=== PATIENT | female | born 1960 | race Caucasian/White ===

== ENCOUNTER 2020-06-26 14:16 | Inpatient (IN) | payer BC ==
[2020-06-26] VITALS (9 sets, daily range): BP systolic 165–205; BP diastolic 68–99
[~2020-06-26] VITALS: Ht 167.6 cm; Wt 115.6 kg
[~2020-06-26 14:16] MED LIST: ASPI325T8 PO; CITA20TA6 PO; CRESTOR10 MG PO; GABA300C18 PO; INSU100I13 SQ; INSU100V13 SQ; LISI1TAB20 PO; LISI20TA18 PO; METF500T16 PO; METO25TA4 PO; MOME17SP NS; MORP10SY2 SQ; NITR1OIN TD; UBID100C40 PO
[2020-06-26] MEDS ORDERED: ELECTROLYTE (ICU) PROTOCOL. MC PRN (14:45)
[2020-06-26] MEDS ORDERED: ONDANSETRON PF 4 MG/2 ML VIAL. IVP PRN (15:00)
[2020-06-26] MEDS: LABETALOL 20 MG/4 ML DISP.SYRIN. IVP PRN ×2 (15:02→22:45)
[2020-06-26 15:08] LABS: BASO # 0.1 x10^3/uL (0.0-0.2); BASO % 1 % (0-3); EOS % 0 % (0-3); HEMATOCRIT 34.2 % (36.0-47.0); HEMOGLOBIN 11.6 g/dL (12.0-15.5); LYMPH # 1.2 x10^3/uL (1.0-4.8); LYMPH % 13 % (24-48); MEAN CORPUSCULAR HEMOGLOBIN 27 pg (25-35); MEAN CORPUSCULAR HGB CONC 34 g/dL (31-37); MEAN CORPUSCULAR VOLUME 81 fL (79-100); MONO # 0.4 x10^3/uL (0.0-1.1); MONO % 4 % (0-9); NEUT # 7.7 x10^3/uL (1.8-7.7); NEUT % 82 % (31-73); PLATELET COUNT 237 x10^3/uL (140-400); RED BLOOD COUNT 4.24 x10^6/uL (3.50-5.40); RED CELL DISTRIBUTION WIDTH 14.7 % (11.5-14.5); WHITE BLOOD COUNT 9.4 x10^3/uL (4.0-11.0)
--- NOTE | 2020-06-26 15:08 | PDOC2 ---
NEUROLOGY CONSULT Date of Service DOS: DATE: 06/26/20 TIME: 15:06 Reason for Consult Reason for Consult: Stroke Referring Physician Referring Physician: Dr. Caballero Source Source: Chart review, Patient History of Present Illness History of Present Illness The patient is a 60-year-old right-handed female who noticed right sided weakness, incoordination, dysarthria, and headache yesterday morning at about 8:30. 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 She came to the emergency department at [facility] last night so was outside the window for alteplase. She was not considered for any intervention regarding possible large vessel occlusion. Her blood pressure has been as high as 250/98. There is no prior history of stroke, seizure, or head injury. She denies headache. She complains of anxiety or irritability related to restless leg syndrome. She has had cardiac work-up in 2014 for chest pain with negative echocardiogram. She did have an elevated troponin in [facility] and cardiology did see her there. Past Medical History Cardiovascular: CAD (Cardiac Cath 02/02/15: Nonobstructive coronary artery disease, normal left ventricle systolic function with ejection fraction estimated at 55%, no significant mitral regurgitation or aortic stenosis. 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, rare alcohol Current Medications Current Medications Current Medications Potassium Chloride/Sodium Chloride 1,000 ml @ 75 mls/hr [id number] IV Last administered on 06/26/20at 15:01; Start 06/26/20 at 15:00 Aspirin (Ecotrin) 81 mg DAILYWBKFT PO ; Start 06/27/20 at 08:00 Atorvastatin Calcium (Lipitor) 40 mg QHS PO ; Start 06/26/20 at 21:00 Citalopram Hydrobromide (CeleXA) 20 mg DAILY PO ; Start 06/27/20 at 09:00 Info (Icu Electrolyte Protocol) 1 ea CONT PRN PRN MC PER PROTOCOL; Start 06/26/20 at 14:45 Gabapentin (Neurontin) 300 mg BID PO ; Start 06/26/20 at 21:00 Labetalol HCl (Normodyne Iv Push) 20 mg PRN Q2HR PRN IVP HYPERTENSION-1ST CHOICE Last administered on 06/26/20at 15:02; Start 06/26/20 at 14:45 Lisinopril (Prinivil) 10 mg DAILY PO ; Start 06/27/20 at 09:00 Metoprolol Tartrate (Lopressor) 50 mg BID PO ; Start 06/26/20 at 21:00 Ondansetron HCl (Zofran) 4 mg PRN Q4HRS PRN IVP NAUSEA/VOMITING; Start 06/26/20 at 15:00 Hydralazine HCl (Apresoline Inj) 10 mg PRN Q4HRS PRN IVP ELEVATED BP, SEE COMMENTS; Start 06/26/20 at 15:00 Active Scripts Active Reported Co Q-10 (Ubidecarenone) 100 Mg Capsule 100 Mg PO DAILY Lantus Solostar (Insulin Glargine,Hum.rec.anlog) 100 Unit/1 Ml Insuln.pen 55 Unit SQ QHS Metformin Hcl 500 Mg Tablet 1 Tab PO BID hold for 48 hours after cardiac catherization Lisinopril-Hctz 20-25 Mg Tab (Lisinopril/Hydrochlorothiazide) 1 Each Tablet 1 Tab PO DAILY Crestor (Rosuvastatin Calcium) 10 Mg Tablet 1 Tab PO HS Nasonex (Mometasone Furoate) 17 Gm Avalon.pump 2 Avalon NS DAILY Metoprolol Tartrate 25 Mg Tablet 1 Tab PO BID Lisinopril 20 Mg Tablet 1 Tab PO DAILY Gabapentin 300 Mg Capsule 1 Cap PO HS PRN diabetic neuropathy Citalopram Hbr (Citalopram Hydrobromide) 20 Mg Tablet 1 Tab PO DAILY Allergies Allergies: Coded Allergies: shellfish derived (Verified Allergy, Intermediate, 04/07/15) ROS Review of System Negative for fever, chills, weight loss, shortness of breath, chest pain, indigestion, hematochezia, melena, and dysuria. Full 14-point review of systems is negative. Physical Exam Physical Examination General: Well-developed, well-nourished white female in no acute distress HEENT: Normocephalic andatraumatic. Temporal arteriespulsatile and nontender. Neck: Supple without bruit, no meningismus Musculoskeletal: Stability:see neurologic. Gait exam:see neurologic. Tone:see neurologic.Strength:see neurologic. Neurological: Mental Status:intact, orientation, memory, attention span/concentration, language, fund of knowledge normal. Cranial Nerves:Pupils equal and reactive to light, extraocular movements areintact, visual naranjo are full to c onfrontation. Facial sensation is normal. There is a right central facial weakness and dysarthric speech. Vestibulo-ocular reflex is intact. Palate elevates and tongue protrudes in midline. All other cranial related problems are negative except as mentioned before.Reflexes:1+ and symmetric with flexor plantar responses. Motor:3/5 right hemiparesis with normal tone and bulk. Coor dination:Finger-nose finger and lpiq-sd-asxp testing are normal, considering for hemiparesis. Rapid alternating movements and fine finger movements are intact. Gait:Not tested. Sensory:Stocking loss. Vitals VITALS Vital Signs Date Time Temp Pulse Resp B/P (MAP) Pulse Ox O2 Delivery O2 Flow Rate FiO2 06/26/20 15:02 92 205/99 06/26/20 14:51 98.6 18 98 Room Air 98.6 Labs Labs [facility] Laboratory Tests 06/26: BUN 34, creatinine 2.2 Test 06/25/20 17:03 06/25/20 17:11 06/25/20 21:13 06/25/20 22:52 White Blood Count 8.6 x10^3/uL (4.0-11.0) Red Blood Count 4.40 x10^6/uL (3.50-5.40) Hemoglobin 11.9 g/dL (12.0-15.5) Hematocrit 35.6 % (36.0-47.0) Mean Corpuscular Volume 81 fL (79-100) Mean Corpuscular Hemoglobin 27 pg (25-35) Mean Corpuscular Hemoglobin Concent 33 g/dL (31-37) Red Cell Distribution Width 14.5 % (11.5-14.5) Platelet Count 233 x10^3/uL (140-400) Neutrophils (%) (Auto) 64 % (31-73) Lymphocytes (%) (Auto) 23 % (24-48) Monocytes (%) (Auto) 7 % (0-9) Eosinophils (%) (Auto) 6 % (0-3) Basophils (%) (Auto) 1 % (0-3) Neutrophils # (Auto) 5.5 x10^3uL (1.8-7.7) Lymphocytes # (Auto) 2.0 x10^3/uL (1.0-4.8) Monocytes # (Auto) 0.6 x10^3/uL (0.0-1.1) Eosinophils # (Auto) 0.5 x10^3/uL (0.0-0.7) Basophils # (Auto) 0.1 x10^3/uL (0.0-0.2) Prothrombin Time 10.0 SEC (9.4-11.4) Prothromb Time International Ratio 1.0 (0.9-1.1) Activated Partial Thromboplast Time 24 SEC (23-33) Sodium Level 141 mmol/L (136-145) Potassium Level 3.9 mmol/L (3.5-5.1) Chloride Level 106 mmol/L (98-107) Carbon Dioxide Level 27 mmol/L (21-32) Anion Gap 8 (6-14) Blood Urea Nitrogen 27 mg/dL (7-20) Creatinine 2.5 mg/dL (0.6-1.0) Estimated GFR (Cockcroft-Gault) 19.8 BUN/Creatinine Ratio 11 (6-20) Glucose Level 194 mg/dL (70-99) Lactic Acid Level 0.8 mmol/L (0.4-2.0) Calcium Level 7.9 mg/dL (8.5-10.1) Total Bilirubin 0.2 mg/dL (0.2-1.0) Aspartate Amino Transf (AST/SGOT) 14 U/L (15-37) Alanine Aminotransferase (ALT/SGPT) 16 U/L (14-59) Alkaline Phosphatase 98 U/L (46-116) Creatine Kinase 76 U/L (26-192) Creatine Kinase MB (Mass) 2.0 ng/mL (0.0-3.6) Creatine Kinase MB Relative Index 2.6 % (0-4) Troponin I Quantitative 0.032 ng/mL (0-0.055) 0.044 ng/mL (0-0.055) Total Protein 5.4 g/dL (6.4-8.2) Albumin 2.3 g/dL (3.4-5.0) Albumin/Globulin Ratio 0.7 (1.0-1.7) Ethyl Alcohol Level < 10 mg/dL (0-10) Glucose (Fingerstick) 224 mg/dL (70-99) 178 mg/dL (70-99) Test 06/26/20 00:35 06/26/20 01:34 06/26/20 05:35 Troponin I Quantitative 0.089 ng/mL (0-0.055) Urine Collection Type Unknown Urine Color Yellow Urine Clarity Clear Urine pH 7.0 Urine Specific Downey 1.020 Urine Protein >100 mg/dl (NEG-TRACE) Urine Glucose (UA) 250 mg/dL (NEG) Urine Ketones (Stick) Neg mg/dL (NEG) Urine Blood Small (NEG) Urine Nitrite Neg (NEG) Urine Bilirubin Neg (NEG) Urine Urobilinogen Dipstick 0.2 mg/dL (0.2 mg/dL) Urine Leukocyte Esterase Neg (NEG) Urine RBC Occ /HPF (0-2) Urine WBC 5-10 /HPF (0-4) Urine Squamous Epithelial Cells Few /LPF Urine Bacteria Few /HPF (0-FEW) Urine Opiates Screen Neg (NEG) Urine Methadone Screen Neg (NEG) Urine Barbiturates Neg (NEG) Urine Phencyclidine Screen Neg (NEG) Urine Amphetamine/Methamphetamine Neg (NEG) Urine Benzodiazepines Screen Neg (NEG) Urine Cocaine Screen Neg (NEG) Urine Cannabinoids Screen Neg (NEG) Urine Ethyl Alcohol Neg (NEG) White Blood Count 11.1 x10^3/uL (4.0-11.0) Red Blood Count 4.25 x10^6/uL (3.50-5.40) Hemoglobin 11.4 g/dL (12.0-15.5) Hematocrit 34.8 % (36.0-47.0) Mean Corpuscular Volume 82 fL (79-100) Mean Corpuscular Hemoglobin 27 pg (25-35) Mean Corpuscular Hemoglobin Concent 33 g/dL (31-37) Red Cell Distribution Width 14.1 % (11.5-14.5) Platelet Count 230 x10^3/uL (140-400) Neutrophils (%) (Auto) 82 % (31-73) Lymphocytes (%) (Auto) 11 % (24-48) Monocytes (%) (Auto) 4 % (0-9) Eosinophils (%) (Auto) 2 % (0-3) Basophils (%) (Auto) 1 % (0-3) Neutrophils # (Auto) 9.0 x10^3uL (1.8-7.7) Lymphocytes # (Auto) 1.2 x10^3/uL (1.0-4.8) Monocytes # (Auto) 0.5 x10^3/uL (0.0-1.1) Eosinophils # (Auto) 0.3 x10^3/uL (0.0-0.7) Basophils # (Auto) 0.1 x10^3/uL (0.0-0.2) Sodium Level 142 mmol/L (136-145) Potassium Level 3.4 mmol/L (3.5-5.1) Chloride Level 106 mmol/L (98-107) Carbon Dioxide Level 23 mmol/L (21-32) Anion Gap 13 (6-14) Blood Urea Nitrogen 24 mg/dL (7-20) Creatinine 2.4 mg/dL (0.6-1.0) Estimated GFR (Cockcroft-Gault) 20.7 BUN/Creatinine Ratio 10 (6-20) Glucose Level 229 mg/dL (70-99) Calcium Level 8.0 mg/dL (8.5-10.1) Total Bilirubin 0.4 mg/dL (0.2-1.0) Aspartate Amino Transf (AST/SGOT) 14 U/L (15-37) Alanine Aminotransferase (ALT/SGPT) 16 U/L (14-59) Alkaline Phosphatase 90 U/L (46-116) Total Protein 5.9 g/dL (6.4-8.2) Albumin 2.2 g/dL (3.4-5.0) Albumin/Globulin Ratio 0.6 (1.0-1.7) Images Images CT head without contrast 06/26/2020 10:27 AM INDICATION: Facial droop yesterday COMPARISON: CT head 06/25/2020 TECHNIQUE: Multiple axial CT images of the head were obtained from skull base through the vertex without intravenous contrast. FINDINGS: Head: Ventricles, sulci and basal cisterns are within normal limits. There is no hydrocephalus. Mars-white matter differentiation is normal. There is no acute intracranial hemorrhage. There is no mass, mass effect or midline shift. Posterior fossa is normal in appearance. Stable calcified extra-axial lesion along the right frontal calvaria measuring 8.5 mm (series 2, image 19). Low- attenuation in the periventricular white matter is suggestive of chronic small vessel ischemic changes. Visualized portions of the orbits are normal. Paranasal sinuses are well aerated. Mastoid air cells are well aerated. There is a stable calcified scalp lesion along the left frontal parietal scalp measuring 1.2 cm. Calvaria is intact. IMPRESSION: No acute intracranial hemorrhage. Low-attenuation in the periventricular white matter is suggestive of chronic small vessel ischemic changes. No new areas of cerebral edema are suspected as compared to prior examination. CT Head without IV contrast, [facility], 06/25 INDICATION: Reason: slurred speech, right facial droop, right weakness / Spl. Instructions: / History: TECHNIQUE: Multi-detector row CT images were obtained of the head without the use of IV contrast. All CT scans performed at this facility utilize dose optimization techniques as appropriate to the exam, including the following: Automated exposure control and adjustment of the mA and/or KV according to patient size (this includes techniques or standardized protocols for targeted exams where dose is indication/reason for exam). COMPARISON: None FINDINGS: BRAIN PARENCHYMA: No evidence of acute intraparenchymal hemorrhage or infarct. Generalized parenchymal volume loss and white matter low density compatible chronic ischemic microvascular changes present VENTRICLES & EXTRA-AXIAL SPACES: Ventricles are within normal limits. Basilar cisterns are patent. No pathologic extra-axial fluid collection or mass. ORBITS: Orbital contents are unremarkable. SINUSES: Visualized paranasal sinuses and mastoid air cells are clear. OSSEOUS & SOFT TISSUES: Calvarium and skull base are intact. IMPRESSION: No acute intracranial pathology. Assessment/Plan Assessment/Plan Impression: Left hemispheric stroke, most likely lacunar given the lack of aphasia or field cut. We need to rule out large vessel disease, though, which was not addressed at [facility]. Diabetic peripheral neuropathy Restless leg syndrome Hypertension, diabetes, hyperlipidemia, acute on chronic renal insufficiency, elevated troponin. She had hypokalemia at [facility] Recommendations: She presented beyond the window for alteplase last night, she is also now beyond any window for clot retrieval from large vessel disease. CT angiogram contraindicated by her renal insufficiency, I will order MRI of the brain with MR angiogram of the head and neck as a substitute, without contrast. As she is far outside any window for intervention, the study can be done tomorrow Echocardiogram and cardiology has been consulted Aspirin when able to take orally Statin Somewhat tighter blood pressure parameters as she is coming up on 2 days post stroke, using 190/110. Rehabilitation modalities Ativan as needed for restlessness and restless legs until able to take orally Also see stroke orders. Thank you for letting me help with the patient's care. KARINA JAUREGUI MD Jun 26, 2020 15:08
[2020-06-26 15:32] LABS: ALBUMIN 2.1 g/dL (3.4-5.0); ALBUMIN/GLOBULIN RATIO 0.6 (1.0-1.7); CALCIUM 8.8 mg/dL (8.5-10.1); CREATININE 2.6 mg/dL (0.6-1.0); GFR 18.9; POTASSIUM 3.9 mmol/L (3.5-5.1); TOTAL BILIRUBIN 0.5 mg/dL (0.2-1.0); TOTAL PROTEIN 5.8 g/dL (6.4-8.2)
[2020-06-26] MEDS ORDERED: DEXTROSE 50% 25 GM / 50ML DISP.SYRIN. IV PRN (15:45)
[2020-06-26] MEDS ORDERED: LISI1TAB23 PO (15:48)
[2020-06-26] MEDS ORDERED: ATOR40TA59 PO (15:48)
--- NOTE | 2020-06-26 15:57 | NUR ---
The patient, SELENA CALABRESE, 60 y/o, F admitted by MARIO PEREIRA MD, was given written information regarding hospital policies, unit procedures and contact persons. Valuables were checked and admission assessment completed. NIH performed per protocol patient received a [address] Dr[address] Calhoun notified and orders entered. Consult placed see database. Patient in bed call light within reach will continue to monitor
[2020-06-26] MEDS ORDERED: ASPIRIN RECTAL 300 MG SUPP. PR PRN (16:15)
--- NOTE | 2020-06-26 16:24 | NUR ---
RN KIM CLARKE completed see database patient to continue NPO per protocol.
[2020-06-26] MEDS: INSULIN LISPRO 300 UNITS/3 ML VIAL. SQ SCH (17:35)
[2020-06-26] MEDS: MAGNESIUM SULFATE 4GM 100 ML IV SCH (17:35)
[2020-06-26] MEDS: GABAPENTIN 300 MG CAPSULE. PO SCH (21:00)
[2020-06-26] MEDS: ATORVASTATIN CALCIUM 40 MG TABLET. PO SCH (21:00)
[2020-06-26] MEDS: METOPROLOL TART IMMED RELEASE 50 MG TABLET. PO SCH (21:00)
[2020-06-27] VITALS (17 sets, daily range): BP systolic 153–226; BP diastolic 66–108
[2020-06-27] MEDS: hydrALAZINE 20 MG/ML VIAL. IVP PRN ×3 (00:02→10:02)
[2020-06-27] MEDS: LABETALOL 20 MG/4 ML DISP.SYRIN. IVP PRN ×2 (02:05→09:24)
--- NOTE | 2020-06-27 05:38 | NUR ---
Pt given Ativan 2mg IVP per orders at 0045 for restlessness and anxiety. Also, in attempt to help manage BP. Attempted NIH scale X2 at 0400 and 0515. Pt drowsy at 0400 and difficult to stay awake to complete NIH. At 0515, pt continued to be drowsy and only able to perform part of NIH scale. Speech is somewhat more slurred but still able to understand patient. Hydralazine and Labetalol given X2 this shift in attempts to manage BP at goal of 190/110. Remains NPO until ST is able to see pt. PO meds were held due to NPO status.
[2020-06-27] MEDS: INSULIN LISPRO 300 UNITS/3 ML VIAL. SQ SCH ×4 (06:00→17:28)
--- NOTE | 2020-06-27 08:48 | PDOC ---
MACIE SIMMONS PROCESS SAFETY MANAGEMENT ENGINEER 06/27/20 0848: CARDIO Progress Notes Date and Time Date of Service 06/27/20 Time of Evaluation 0848 Subjective Subjective: No Chest Pain, No shortness of breath, No Palpitations, No Dizziness Vitals Vitals Vital Signs Date Time Temp Pulse Resp B/P (MAP) Pulse Ox O2 Delivery O2 Flow Rate FiO2 06/27/20 07:00 90 20 202/85 (124) 100 Nasal Cannula 2.0 06/27/20 04:30 98.5 98.5 Weight Weight [ ] Input and Output Intake and Output Intake and Output 06/27/20 07:00 Intake Total 1018 ml Output Total 500 ml Balance 518 ml Intake Oral 0 ml IV Total 1018 ml Output Urine Total 500 ml # Voids 1 Laboratory Labs Laboratory Tests Test 06/26/20 14:50 06/26/20 17:28 06/26/20 22:25 06/27/20 00:04 White Blood Count 9.4 x10^3/uL (4.0-11.0) Red Blood Count 4.24 x10^6/uL (3.50-5.40) Hemoglobin 11.6 g/dL (12.0-15.5) Hematocrit 34.2 % (36.0-47.0) Mean Corpuscular Volume 81 fL (79-100) Mean Corpuscular Hemoglobin 27 pg (25-35) Mean Corpuscular Hemoglobin Concent 34 g/dL (31-37) Red Cell Distribution Width 14.7 % (11.5-14.5) Platelet Count 237 x10^3/uL (140-400) Neutrophils (%) (Auto) 82 % (31-73) Lymphocytes (%) (Auto) 13 % (24-48) Monocytes (%) (Auto) 4 % (0-9) Eosinophils (%) (Auto) 0 % (0-3) Basophils (%) (Auto) 1 % (0-3) Neutrophils # (Auto) 7.7 x10^3/uL (1.8-7.7) Lymphocytes # (Auto) 1.2 x10^3/uL (1.0-4.8) Monocytes # (Auto) 0.4 x10^3/uL (0.0-1.1) Eosinophils # (Auto) 0.0 x10^3/uL (0.0-0.7) Basophils # (Auto) 0.1 x10^3/uL (0.0-0.2) Sodium Level 143 mmol/L (136-145) Potassium Level 3.9 mmol/L (3.5-5.1) Chloride Level 107 mmol/L (98-107) Carbon Dioxide Level 25 mmol/L (21-32) Anion Gap 11 (6-14) Blood Urea Nitrogen 27 mg/dL (7-20) Creatinine 2.6 mg/dL (0.6-1.0) Estimated GFR (Cockcroft-Gault) 18.9 BUN/Creatinine Ratio 10 (6-20) Glucose Level 253 mg/dL (70-99) Calcium Level 8.8 mg/dL (8.5-10.1) Magnesium Level 1.3 mg/dL (1.8-2.4) 2.5 mg/dL (1.8-2.4) Total Bilirubin 0.5 mg/dL (0.2-1.0) Aspartate Amino Transf (AST/SGOT) 16 U/L (15-37) Alanine Aminotransferase (ALT/SGPT) 17 U/L (14-59) Alkaline Phosphatase 89 U/L (46-116) Total Protein 5.8 g/dL (6.4-8.2) Albumin 2.1 g/dL (3.4-5.0) Albumin/Globulin Ratio 0.6 (1.0-1.7) Triglycerides Level 110 mg/dL (0-150) Cholesterol Level 198 mg/dL (0-200) LDL Cholesterol, Calculated 126 mg/dL (0-100) VLDL Cholesterol, Calculated 22 mg/dL (0-40) Non-HDL Cholesterol Calculated 148 mg/dL (0-129) HDL Cholesterol 50 mg/dL (40-60) Cholesterol/HDL Ratio 4.0 Glucose (Fingerstick) 199 mg/dL (70-99) 187 mg/dL (70-99) Test 06/27/20 06:34 06/27/20 08:00 Glucose (Fingerstick) 226 mg/dL (70-99) Magnesium Level 2.4 mg/dL (1.8-2.4) Physical Exam HEENT: Neck Supple W Full Motion, Other (right facial droop) Chest: Symmetric LUNGS: Clear to Auscultation Heart: RRR Abdomen: Soft N/T Extremities: No Edema, Other (right sided weakness) Neurology: alert, oriented, follow commands Assessment Assessment This is a 60 yo female who presented to [facility] secondary to right sided weakness and facial drop. Patient reports this began upon awakening 06/25/20. Denied any associated dizziness, diaphoresis, chest pain, or nausea/vomiting. No recent fevers or illness. Blood pressure significantly elevated upon arrival. Reports complains with meds at home. Please see consult at [facility] for further details. Assessment 1. Acute onset right sided weakness, acute CVA 2. FORREST on CKD 3. Hypertensive urgency; labile 4. Elevated troponin; highest 0.16. Most probable type II, demand ischemia in setting of above 5. Hyperlipidemia; statin 6. Diabetes, II 7. Hypokalemia, hypomagnesemia; replaced Recommendations MRI today Secondary prevention ST eval. Echo to assess LV systolic function, r/o cardiac anomalies Hydralazine, Labetalol IV PRN while NPO Can use Cardene if BP goal not achieved with above Allow for higher baseline blood pressure given acute stroke Rehab modalities Follow neuro recs Consider outpatient ischemic evaluation Supportive care Justicifation of Admission Dx: Justifications for Admission: Justification of Admission Dx: Yes Comments: Acute CVA Accelerated HTN Elevated troponin RONALDO JESUS MD 06/27/20 2213: CARDIO Progress Notes Plan Plan Pt. seen and examined. Agree with above AIRCRAFT [employer] SYSTEM[employer] MECHANIC note. Supportive care. MACIE SIMMONS APRN Jun 27, 2020 08:48 RONALDO JESUS MD Jun 27, 2020 22:13
[2020-06-27] MEDS: METOPROLOL TART IMMED RELEASE 50 MG TABLET. PO SCH ×2 (09:00→21:18)
[2020-06-27] MEDS ORDERED: LISINOPRIL 10 MG TABLET PO SCH (09:00)
[2020-06-27] MEDS: MAGNESIUM SULFATE 4GM 100 ML IV SCH (09:00)
--- NOTE | 2020-06-27 09:30 | EKG ---
[facility] [address] [place] [address] Test Date: 2020-06-27 Test Time: 09:26:57 Pat Name: SELENA CALABRESE Department: Room: [facility] 1 Gender: F Interactive Web Developer: JAMAL : 1960 Requested By: MACIE SIMMONS Order Number: [id number] Reading MD: Cameron De La Paz Measurements Intervals [place] Rate: 90 P: 54 CA: 168 QRS: 51 QRSD: 78 T: 114 QT: 386 QTc: 477 Interpretive Statements SINUS RHYTHM PROLONGED QT Electronically Signed On 07-03-2020 10:04:28 NEON SIGN MECHANIC by Cameron De La Paz
--- NOTE | 2020-06-27 09:44 | HP ---
ADMIT DATE: 06/27/2020 HISTORY OF PRESENT ILLNESS: The patient is a 60-year-old female patient who presented to the Emergency Room of [facility] with a complaint of slurring of speech and unsteady on her feet, she noted that yesterday morning when she woke up and on the day for admission to [facility]. However, she managed to go to school, work and come back home. According to her, nobody has noticed any right-sided facial droop or slurring of her speech and as her symptoms continued, she decided to come to the Emergency Room, where her blood pressure was noted to be extremely high at 206/87. She also complained of numbness and paresthesia of her hands. Initial noncontrasted CT scan revealed no acute intracranial process. According to the Emergency Room physician, she was outside the window for TPA and according to document of the Emergency Room physician, her symptoms have completely resolved by the time she was admitted to [facility]. However, when I saw her yesterday, she was extremely hypertensive with a high blood pressure of 250/98. She continued to have slurring of speech and right-sided weakness and right-sided facial droop. I did repeat her CT scan and again the second CT scan showed no acute intracranial hemorrhage, low attenuation in the periventricular white matter, suggestive of chronic small vessel ischemic changes. No new areas of cerebral edema are suspected as compared to prior examination. I did start her on IV labetalol and hydralazine and was transferred to [facility] for her to consult the neurologist and also to arrange for an MRI and MRA. When I saw her this morning, she was awake, alert, continued to have slurring of speech and right-sided weakness. Apparently, she was seen yesterday by Dr. Calhoun, who recommended an MRI and MRA as well as Cardiology consult and echocardiogram. PAST MEDICAL HISTORY: Significant for type 2 diabetes mellitus since 2002, hypertension, hyperlipidemia, chronic kidney disease, generalized osteoarthritis, and peripheral neuropathy. PAST SURGICAL HISTORY: Significant for cholecystectomy, 4 and tubal ligation. ALLERGIES: She has no known drug allergy EXCEPT TO SHELLF[employer] D[employer]IVATIVES. HOME MEDICATIONS: Consist of atorvastatin, calcium 40 mg at bedtime, metoprolol tartrate 50 mg twice a day. She was on lisinopril/hydrochlorothiazide 10/12.5 mg once a day, gabapentin 300 mg 3 times a day, citalopram hydrobromide 20 mg daily, metformin 500 mg daily and glipizide 5 mg extended release 1 tablet once a day. FAMILY HISTORY: She has 1 half-sister and older brother. Her father at the age of 72, the cause of which is not clear. Mother at age of 47 because of breast cancer. SOCIAL HISTORY: She is , has 2 sons. They continue to live with her and her . She has another daughter and a son. She quit smoking in 1984. She does not drink alcohol nor does she smoke marijuana, but used CBD. She is an cashier assistant, working at [employer]. REVIEW OF SYSTEMS: As per history of present illness. PHYSICAL EXAMINATION GENERAL: When I saw her this morning, she looked well and was clearly in no apparent respiratory distress. No pallor, jaundice, cyanosis or thyromegaly. No jugular venous distention. No lower limb edema. VITAL SIGNS: Her heart rate was 90, blood pressure was 202/85, temperature was 98.5, respiratory rate 20, and oxygen saturation was 100% on 2 liters of oxygen. HEAD, EYES, EARS, NOSE AND THROAT: Normocephalic, atraumatic. NECK: Supple. HEART: Showed normal first and second heart sounds. No gallop or murmur. CHEST: Clear to auscultation. No crepitation or rhonchi. ABDOMEN: Distended, soft, nontender. NEUROLOGIC: She is awake, alert, responding appropriately. She continued to have slurring of speech and right-sided facial droop. She also has right-sided hemiplegia. Her intake and output were incompletely recorded. LABORATORY WORK: Her lab work showed a white cell count of 9400, hemoglobin 11.6, hematocrit 34, MCV 81 and platelet count of 237,000. Her serum sodium was 143, potassium 3.9, chloride 107, bicarbonate 25, anion gap of 11, BUN 27, creatinine 2.6 cm. Her blood sugar was 253, calcium was 8.8. Total bilirubin, AST, ALT, alkaline phosphatase are normal. Total protein 5.8, albumin 2.1. Serum triglycerides 110, total cholesterol 198, LDL was 126, VLDL was 22, HDL was 50 and the ratio was 4. IMPRESSION: In summary, this is a 60-year-old female patient with left hemispheric stroke, with right-sided facial droop and right-sided hemiplegia. Other medical problems include diabetic peripheral neuropathy, restless leg syndrome, hypertension, type 2 diabetes, hyperlipidemia and acute on chronic renal insufficiency, elevated troponin and hypokalemia that has resolved. The patient is scheduled for MRI and MRA of the head and neck as substitute without contrast. Meanwhile, we will consult Physical and Occupational Therapy, Speech Therapy and continue with Ativan as needed for restlessness and anxiety. MARIO PEREIRA MD DR: RG/malvin JOB#: [id number] / [id number]
--- NOTE | 2020-06-27 10:19 | PDOC ---
PROGRESS NOTES Date of Service DATE: 06/27/20 TIME: 10:15 Assessment Left hemispheric stroke, most likely lacunar given the lack of aphasia or field cut. We need to rule out large vessel disease, though, which was not addressed at [facility]. Diabetic peripheral neuropathy Restless leg syndrome Hypertension, diabetes, hyperlipidemia, acute on chronic renal insufficiency, elevated troponin. She had hypokalemia at [facility] Plan Await MRI of the brain with MR angiogram of the head and neck Echocardiogram and cardiology consult Aspirin when able to take orally Statin Blood pressure parameters less than 190/110. [facility] for [facility]lessness and restless legs until able to take orally Also see stroke orders. Subjective Feels better Objective Vital Signs Date Time Temp Pulse Resp B/P (MAP) Pulse Ox O2 Delivery O2 Flow Rate FiO2 06/27/20 10:02 87 175/84 06/27/20 09:00 18 98 Nasal Cannula 2.0 06/27/20 08:00 98.9 98.9 Intake and Output 06/27/20 07:00 Intake Total 1018 ml Output Total 500 ml Balance 518 ml Intake Oral 0 ml IV Total 1018 ml Output Urine Total 500 ml # Voids 1 PHYSICAL EXAM Alert. Oriented to time, place and person. PERRL. EOMI. CN: right central facial weakness, dysarthria, both better Muscle tone: normal. Muscle strength: 4/5 right hemiparesis DTR: 1+ Plantar reflex: Flexor Gait: not examined in bed. Sensory exam: Stocking loss. No cerebellar signs elicited. Review of Relevant I have reviewed the following items eldon (where applicable) has been applied. Labs Laboratory Tests Test 06/26/20 14:50 06/26/20 17:28 06/26/20 22:25 06/27/20 00:04 White Blood Count 9.4 x10^3/uL (4.0-11.0) Red Blood Count 4.24 x10^6/uL (3.50-5.40) Hemoglobin 11.6 g/dL (12.0-15.5) Hematocrit 34.2 % (36.0-47.0) Mean Corpuscular Volume 81 fL (79-100) Mean Corpuscular Hemoglobin 27 pg (25-35) Mean Corpuscular Hemoglobin Concent 34 g/dL (31-37) Red Cell Distribution Width 14.7 % (11.5-14.5) Platelet Count 237 x10^3/uL (140-400) Neutrophils (%) (Auto) 82 % (31-73) Lymphocytes (%) (Auto) 13 % (24-48) Monocytes (%) (Auto) 4 % (0-9) Eosinophils (%) (Auto) 0 % (0-3) Basophils (%) (Auto) 1 % (0-3) Neutrophils # (Auto) 7.7 x10^3/uL (1.8-7.7) Lymphocytes # (Auto) 1.2 x10^3/uL (1.0-4.8) Monocytes # (Auto) 0.4 x10^3/uL (0.0-1.1) Eosinophils # (Auto) 0.0 x10^3/uL (0.0-0.7) Basophils # (Auto) 0.1 x10^3/uL (0.0-0.2) Sodium Level 143 mmol/L (136-145) Potassium Level 3.9 mmol/L (3.5-5.1) Chloride Level 107 mmol/L (98-107) Carbon Dioxide Level 25 mmol/L (21-32) Anion Gap 11 (6-14) Blood Urea Nitrogen 27 mg/dL (7-20) Creatinine 2.6 mg/dL (0.6-1.0) Estimated GFR (Cockcroft-Gault) 18.9 BUN/Creatinine Ratio 10 (6-20) Glucose Level 253 mg/dL (70-99) Calcium Level 8.8 mg/dL (8.5-10.1) Magnesium Level 1.3 mg/dL (1.8-2.4) 2.5 mg/dL (1.8-2.4) Total Bilirubin 0.5 mg/dL (0.2-1.0) Aspartate Amino Transf (AST/SGOT) 16 U/L (15-37) Alanine Aminotransferase (ALT/SGPT) 17 U/L (14-59) Alkaline Phosphatase 89 U/L (46-116) Total Protein 5.8 g/dL (6.4-8.2) Albumin 2.1 g/dL (3.4-5.0) Albumin/Globulin Ratio 0.6 (1.0-1.7) Triglycerides Level 110 mg/dL (0-150) Cholesterol Level 198 mg/dL (0-200) LDL Cholesterol, Calculated 126 mg/dL (0-100) VLDL Cholesterol, Calculated 22 mg/dL (0-40) Non-HDL Cholesterol Calculated 148 mg/dL (0-129) HDL Cholesterol 50 mg/dL (40-60) Cholesterol/HDL Ratio 4.0 Glucose (Fingerstick) 199 mg/dL (70-99) 187 mg/dL (70-99) Test 06/27/20 06:34 06/27/20 08:00 Glucose (Fingerstick) 226 mg/dL (70-99) Magnesium Level 2.4 mg/dL (1.8-2.4) Troponin I Quantitative 0.315 ng/mL (0.000-0.055) Laboratory Tests Test 06/26/20 14:50 06/26/20 17:28 06/26/20 22:25 06/27/20 00:04 White Blood Count 9.4 x10^3/uL (4.0-11.0) Red Blood Count 4.24 x10^6/uL (3.50-5.40) Hemoglobin 11.6 g/dL (12.0-15.5) Hematocrit 34.2 % (36.0-47.0) Mean Corpuscular Volume 81 fL (79-100) Mean Corpuscular Hemoglobin 27 pg (25-35) Mean Corpuscular Hemoglobin Concent 34 g/dL (31-37) Red Cell Distribution Width 14.7 % (11.5-14.5) Platelet Count 237 x10^3/uL (140-400) Neutrophils (%) (Auto) 82 % (31-73) Lymphocytes (%) (Auto) 13 % (24-48) Monocytes (%) (Auto) 4 % (0-9) Eosinophils (%) (Auto) 0 % (0-3) Basophils (%) (Auto) 1 % (0-3) Neutrophils # (Auto) 7.7 x10^3/uL (1.8-7.7) Lymphocytes # (Auto) 1.2 x10^3/uL (1.0-4.8) Monocytes # (Auto) 0.4 x10^3/uL (0.0-1.1) Eosinophils # (Auto) 0.0 x10^3/uL (0.0-0.7) Basophils # (Auto) 0.1 x10^3/uL (0.0-0.2) Sodium Level 143 mmol/L (136-145) Potassium Level 3.9 mmol/L (3.5-5.1) Chloride Level 107 mmol/L (98-107) Carbon Dioxide Level 25 mmol/L (21-32) Anion Gap 11 (6-14) Blood Urea Nitrogen 27 mg/dL (7-20) Creatinine 2.6 mg/dL (0.6-1.0) Estimated GFR (Cockcroft-Gault) 18.9 BUN/Creatinine Ratio 10 (6-20) Glucose Level 253 mg/dL (70-99) Calcium Level 8.8 mg/dL (8.5-10.1) Magnesium Level 1.3 mg/dL (1.8-2.4) 2.5 mg/dL (1.8-2.4) Total Bilirubin 0.5 mg/dL (0.2-1.0) Aspartate Amino Transf (AST/SGOT) 16 U/L (15-37) Alanine Aminotransferase (ALT/SGPT) 17 U/L (14-59) Alkaline Phosphatase 89 U/L (46-116) Total Protein 5.8 g/dL (6.4-8.2) Albumin 2.1 g/dL (3.4-5.0) Albumin/Globulin Ratio 0.6 (1.0-1.7) Triglycerides Level 110 mg/dL (0-150) Cholesterol Level 198 mg/dL (0-200) LDL Cholesterol, Calculated 126 mg/dL (0-100) VLDL Cholesterol, Calculated 22 mg/dL (0-40) Non-HDL Cholesterol Calculated 148 mg/dL (0-129) HDL Cholesterol 50 mg/dL (40-60) Cholesterol/HDL Ratio 4.0 Glucose (Fingerstick) 199 mg/dL (70-99) 187 mg/dL (70-99) Test 06/27/20 06:34 06/27/20 08:00 Glucose (Fingerstick) 226 mg/dL (70-99) Magnesium Level 2.4 mg/dL (1.8-2.4) Troponin I Quantitative 0.315 ng/mL (0.000-0.055) Medications Current Medications Potassium Chloride/Sodium Chloride 1,000 ml @ 75 mls/hr [id number] IV Last administered on 06/27/20at 06:37; Start 06/26/20 at 15:00 Aspirin (Ecotrin) 81 mg DAILYWBKFT PO ; Start 06/27/20 at 08:00 Atorvastatin Calcium (Lipitor) 40 mg QHS PO ; Start 06/26/20 at 21:00 Citalopram Hydrobromide (CeleXA) 20 mg DAILY PO ; Start 06/27/20 at 09:00 Info (Icu Electrolyte Protocol) 1 ea CONT PRN PRN MC PER PROTOCOL; Start 06/26/20 at 14:45 Gabapentin (Neurontin) 300 mg BID PO ; Start 06/26/20 at 21:00 Labetalol HCl (Normodyne Iv Push) 20 mg PRN Q2HR PRN IVP HYPERTENSION-1ST LUNA CE Last administered on 06/27/20at 09:24; Start 06/26/20 at 14:45 Lisinopril (Prinivil) 10 mg DAILY PO ; Start 06/27/20 at 09:00 Metoprolol Tartrate (Lopressor) 50 mg BID PO ; Start 06/26/20 at 21:00 Ondansetron HCl (Zofran) 4 mg PRN Q4HRS PRN IVP NAUSEA/VOMITING Last administered on 06/27/20at 00:45; Start 06/26/20 at 15:00 Hydralazine HCl (Apresoline Inj) 10 mg PRN Q4HRS PRN IVP ELEVATED BP, SEE COMMENTS Last administered on 06/27/20at 10:02; Start 06/26/20 at 15:00 Nicardipine HCl 50 mg/Sodium Chloride 250 ml @ 0 mls/hr CONT PRN PRN IV PER PROTOCOL; Start 06/26/20 at 15:45 Lorazepam (Ativan Inj) 2 mg PRN Q4HRS PRN IVP ANXIETY / AGITATION Last administered on 06/27/20at 00:45; Start 06/26/20 at 15:45 Insulin Human Lispro (HumaLOG) 0-5 UNITS Q6HRS SQ ; Start 06/26/20 at 18:00 Dextrose (Dextrose 50%-Water Syringe) 12.5 gm PRN Q15MIN PRN IV SEE COMMENTS; Start 06/26/20 at 15:45 Aspirin (Aspirin Rectal Supp) 300 mg PRN DAILY PRN AZ IF UNABLE TO TAKE PO Last administered on 06/26/20at 17:39; Start 06/26/20 at 16:15 Magnesium Sulfate 100 ml @ 50 mls/hr DAILY IV Last administered on 06/26/20at 17:35; Start 06/26/20 at 17:00; Stop 06/30/20 at 16:59 Active Scripts Active Reported Atorvastatin Calcium 40 Mg Tablet 1 Tab PO DAILY Lisinopril-Hctz 10-12.5 Mg Tab (Lisinopril/Hydrochlorothiazide) 1 Each Tablet 1 Tab PO DAILY Metformin Hcl 500 Mg Tablet 1 Tab PO DAILYWBKFT hold for 48 hours after cardiac catherization Metoprolol Tartrate 25 Mg Tablet 2 Tab PO BID Gabapentin (Gabapentin) 300 Mg Capsule 1 Cap PO TID PRN diabetic neuropathy Citalopram Hbr (Citalopram Hydrobromide) 20 Mg Tablet 1 Tab PO DAILY Vitals/I & O Vital Sign - Last 24 Hours 06/26/20 06/26/20 06/26/20 06/26/20 14:51 15:02 15:15 16:05 Temp 98.6 98.6 Pulse 91 92 85 Resp 18 B/P (MAP) 205/99 (134) 205/99 193/89 (123) Pulse Ox 98 92 O2 Delivery Room Air Room Air Room Air 06/26/20 06/26/20 06/26/20 06/26/20 16:39 18:17 19:00 20:00 Pulse 81 85 96 Resp 26 B/P (MAP) 176/75 (108) 178/81 (113) 165/77 (106) Pulse Ox 96 91 92 O2 Delivery Room Air Room Air Room Air Room Air 06/26/20 06/26/20 06/26/20 06/26/20 20:00 21:00 22:00 22:45 Temp 98.8 98.8 Pulse 90 84 90 92 Resp 19 26 B/P (MAP) 194/95 (128) 174/68 (103) 202/89 (126) 220/99 Pulse Ox 93 92 92 O2 Delivery Room Air Room Air Room Air 06/26/20 06/27/20 06/27/20 06/27/20 23:00 00:00 00:00 00:02 Temp 98.7 98.7 Pulse 84 90 77 Resp 20 33 B/P (MAP) 191/84 (119) 217/100 (139) Pulse Ox 92 88 O2 Delivery Room Air Room Air Room Air 06/27/20 06/27/20 06/27/20 06/27/20 00:05 01:00 02:00 02:05 Pulse 87 90 93 Resp 19 18 B/P (MAP) 212/104 (140) 199/91 (127) 220/102 Pulse Ox 91 91 95 O2 Delivery Nasal Cannula Nasal Cannula Nasal Cannula O2 Flow Rate 2.0 2.0 2.0 06/27/20 06/27/20 06/27/20 06/27/20 03:00 04:00 04:00 04:30 Temp 98.5 98.5 Pulse 94 82 Resp 22 16 B/P (MAP) 194/93 (126) 200/108 (138) Pulse Ox 95 94 O2 Delivery Nasal Cannula Room Air Nasal Cannula O2 Flow Rate 2.0 2.0 06/27/20 06/27/20 06/27/20 06/27/20 05:00 05:10 06:00 07:00 Pulse 87 88 88 90 Resp 18 26 20 B/P (MAP) 226/104 (144) 226/104 175/84 (114) 202/85 (124) Pulse Ox 94 97 100 O2 Delivery Nasal Cannula Nasal Cannula Nasal Cannula O2 Flow Rate 2.0 2.0 2.0 06/27/20 06/27/20 06/27/20 06/27/20 08:00 08:00 09:00 09:24 Temp 98.9 98.9 Pulse 94 86 99 Resp 22 18 B/P (MAP) 206/92 (130) 170/79 (109) 210/100 Pulse Ox 98 98 O2 Delivery Nasal Cannula Nasal Cannula Nasal Cannula O2 Flow Rate 2.0 2.0 2.0 06/27/20 10:02 Pulse 87 B/P (MAP) 175/84 Intake and Output 06/26/20 06/26/20 06/27/20 15:00 23:00 07:00 Intake Total 100 ml 918 ml Output Total 150 ml 350 ml Balance -150 ml -250 ml 918 ml Justicifation of Admission Dx: Justifications for Admission: Justification of Admission Dx: Yes Stroke - Ischemic: Stroke-Ischemic KARINA JAUREGUI MD Jun 27, 2020 10:19
[2020-06-27 10:34] LABS: CALCIUM 8.7 mg/dL (8.5-10.1); CREATININE 2.8 mg/dL (0.6-1.0); GFR 17.4; POTASSIUM 4.4 mmol/L (3.5-5.1)
[2020-06-27 10:45] LABS: HEMATOCRIT 35.5 % (36.0-47.0); HEMOGLOBIN 11.5 g/dL (12.0-15.5); RED BLOOD COUNT 4.28 x10^6/uL (3.50-5.40); RED CELL DISTRIBUTION WIDTH 14.6 % (11.5-14.5); WHITE BLOOD COUNT 12.1 x10^3/uL (4.0-11.0)
--- NOTE | 2020-06-27 14:16 | RAD ---
MRA NECK WITHOUT CONTRAST, MRI BRAIN WO DATE: 06/27/2020 11:10 AM INDICATION: CVA, right weakness MRA HEAD TECHNIQUE: Axial 3-D [id number] images of the intracranial vessels without contrast. 3D reformatted images were performed on a separate workstation and reviewed. MRA NECK TECHNIQUE: MR angiography of the neck was performed without contrast using time of flight te chnique. 3D reformatted images were performed on a separate workstation and reviewed. COMPARISON: MRI brain obtained concurrently. FINDINGS: Head: Anterior Circulation: Bilateral ICA terminus and MCA bifurcations obscured by motion artifact. Posterior Circulation: The basilar artery, and posterior cerebral arteries show no significant stenos is or aneurysm. Vertebral artery is partially obscured by motion. No arteriovenous malformation is seen. Neck: The examination is slightly limited secondary to patient motion and noncontrast technique. Antegrade flow within the right common carotid artery. No evidence of high-grade stenosis within the right internal carotid artery, though somewhat limited without intravenous contrast. Antegrade flow within the right vertebral artery. Antegrade flow within the left common carotid artery. No evidence of high-grade stenosis of the left internal carotid artery, though somewhat limited without intravenous contrast. Antegrade flow within the left vertebral artery. IMPRESSION: 1. Intracranially, motion artifact partially distorts several major vessels resulting in nondiagnosti c evaluation. Consider CTA for further characterization. 2. Antegrade flow within the bilateral carotid and vertebral arteries. No evidence for high-grade sam nosis of the internal carotid arteries, though somewhat limited without intravenous contrast. Measurements of vascular lumen diameter is performed on MIP and source images and measured by NASCET ([place] symptomatic carotid endarterectomy trial) criteria. Electronically signed by: Rebel Dolan MD (06/27/2020 2:13 PM) [facility]
--- NOTE | 2020-06-27 14:16 | RAD ---
MRI BRAIN WO Date: 06/27/2020 11:09 AM Indication: CVA, right weakness Comparison: CT 06/26/2020. Technique: Multiplanar multisequence MRI of the brain was performed without intravenous contrast usin g the standard protocol. Findings: Small area of restricted diffusion in the left chan radiata. No acute or chronic hemorrhage. The ve ntricles are normal in size and configuration without hydrocephalus. Mild scattered FLAIR hyperintens ities in the subcortical and periventricular deep white matter, a nonspecific finding, most commonly seen with chronic small vessel ischemic disease. Left cerebellar chronic lacunar infarcts. The scalp and calvarium are normal. The pituitary and sella are normal. No Chiari malformation. The v isualized upper cervical spine is normal. The visualized orbits and globes are normal. The visualized paranasal sinuses are clear. The mastoid air cells are clear. Normal flow voids within the vertebral, basilar, and internal carotid arteries indicating patency. IMPRESSION: 1. Small area of acute infarct in the left chan radiata. No acute hemorrhage. 2. Mild chronic small vessel ischemic disease. 3. Left cerebellar chronic lacunar infarct. Electronically signed by: Rebel Dolan MD (06/27/2020 2:14 PM) [facility]
[2020-06-27] MEDS: CITALOPRAM 20 MG TABLET. PO SCH (14:46)
[2020-06-27] MEDS: GABAPENTIN 300 MG CAPSULE. PO SCH ×2 (14:46→21:18)
[2020-06-27] MEDS: ASPIRIN ENTERIC COATED 81 MG TABLET.DR. PO SCH (14:46)
--- NOTE | 2020-06-27 15:03 | CARD ---
MR#: [id number] Date of Study: 06/27/2020 Ordering Physician: KARINA JAUREGUI, Referring Physician: KARINA JAUREGUI, Tech: Cara Daldougieshade, [facility] APPROVED REPORT EXAM: Two-dimensional and M-mode echocardiogram with Doppler, color Doppler with contrast. Other Information Quality : Average INDICATION CVA/TIA Chest Pain Echo Enhancing Agent Indication: Rule Out Septal Defect Agent/Amount Used: Agitated Saline 10mL RISK FACTORS Hypertension Hyperlipidemia Diabetes Smoking 2D DIMENSIONS RVDd2.9 (2.9-3.5cm)Left Atrium(2D)3.4 (1.6-4.0cm) IVSd1.4 (0.7-1.1cm)Aortic Root(2D)3.4 (2.0-3.7cm) LVDd5.2 (3.9-5.9cm)LVOT Diameter2.0 (1.8-2.4cm) PWd1.4 (0.7-1.1cm)LVDs2.8 (2.5-4.0cm) FS (%) 46.2 %SV101.7 ml LVEF(%)77.2 (>50%) Aortic Valve AoV Peak Chan.187.4cm/sAoV VTI41.6cm AO Peak GR.14.0mmHgLVOT VTI 28.40cm AO Mean GR.9mmHg Mitral Valve MV E Pmjetkys090.3cm/sMV E Peak Gr.5mmHg MV DECEL [id number] A Wddkisic21.1cm/s MV E Mean Gr.3mmHgE/A Ratio1.2 TDI Lateral E' P. V8.82cm/sMedial E' P. V7.02cm/s E/Lateral E'12.8E/Medial E'16.1 Tricuspid Valve TR P. [id number]/sRAP [id number] TR Peak Gr.63zjLdWIXL69uvVl Pulmonary Vein S1 Ixfzvxcv33.6cm/sS2 Uztnahbc63.22cm/s D2 Fqovlrly83.2cm/s LEFT VENTRICLE The left ventricle is normal size. There is mild to moderate concentric left ventricular hypertrophy. The left ventricular systolic function is normal and the ejection fraction is within normal range. T he Ejection Fraction is 60-65%. There is normal LV segmental wall motion. Transmitral Doppler flow pa ttern is Grade I-abnormal relaxation pattern. RIGHT VENTRICLE The right ventricle is normal size. There is normal right ventricular wall thickness. The right ventr icular systolic function is normal. ATRIA The left atrium is borderline dilated. The right atrium size is normal. The interatrial septum is int act with no evidence for an atrial septal defect or patent foramen ovale as noted on 2-D or Doppler i [facility]. Agitated saline study did not reveal any evidence of atrial septal defect. AORTIC VALVE Not well visualized. Doppler and Color Flow revealed no significant aortic regurgitation. There is no significant aortic valvular stenosis. Calculated aortic valve area is 2.20 cm2 with maximum pressure gradient of 16 mmHg and mean pressure gradient of 9 mmHg. MITRAL VALVE The mitral valve is normal in structure and function. There is no evidence of mitral valve prolapse. There is no mitral valve stenosis. Doppler and Color-flow revealed trace mitral regurgitation. TRICUSPID VALVE The tricuspid valve is normal in structure and function. Doppler and Color Flow revealed trace tricus pid regurgitation with an estimated PAP of 44 mmHg. There is no tricuspid valve stenosis. PULMONIC VALVE The pulmonic valve is not well visualized. Doppler and Color Flow revealed no pulmonic valvular regur gitation. There is no pulmonic valvular stenosis. GREAT VESSELS The aortic root is normal in size. The IVC dilated suggestive of mild volume overload. PERICARDIAL EFFUSION There is no evidence of significant pericardial effusion. Critical Notification Critical Value: No <Conclusion> The left ventricular systolic function is normal and the ejection fraction is within normal range. Th e Ejection Fraction is 60-65%. There is normal LV segmental wall motion. The interatrial septum is intact with no evidence for an atrial septal defect or patent foramen ovale as noted on 2-D or Doppler imaging. Agitated saline study did not reveal any evidence of atrial sept al defect. Signed by : Bowen Watson, Electronically Approved : 06/27/2020 15:03:11
--- NOTE | 2020-06-27 15:30 | NUR ---
SS following for discharge planning. SS reviewed pt chart and discussed with pt RN. Pt is from home with spouse and is currently on room air. PT/OT/ST ordered. Pt on Dysphagia II diet and thin liquids. MRI today. Probable need for rehabilitation facility. SS requested COVID19 test for placement purposes. SS will continue to follow for discharge planning.
[2020-06-27] MEDS: ATORVASTATIN CALCIUM 40 MG TABLET. PO SCH (21:18)
[2020-06-28] VITALS (9 sets, daily range): BP systolic 164–209; BP diastolic 73–109
[2020-06-28] MEDS: LABETALOL 20 MG/4 ML DISP.SYRIN. IVP PRN ×2 (04:30→21:42)
[2020-06-28 08:00] LABS: BASO # 0.1 x10^3/uL (0.0-0.2); BASO % 1 % (0-3); EOS # 0.4 x10^3/uL (0.0-0.7); EOS % 4 % (0-3); HEMATOCRIT 29.9 % (36.0-47.0); HEMOGLOBIN 9.9 g/dL (12.0-15.5); LYMPH # 1.4 x10^3/uL (1.0-4.8); LYMPH % 14 % (24-48); MEAN CORPUSCULAR HEMOGLOBIN 27 pg (25-35); MEAN CORPUSCULAR HGB CONC 33 g/dL (31-37); MEAN CORPUSCULAR VOLUME 83 fL (79-100); MONO # 0.7 x10^3/uL (0.0-1.1); MONO % 8 % (0-9); NEUT # 7.1 x10^3/uL (1.8-7.7); NEUT % 73 % (31-73); PLATELET COUNT 207 x10^3/uL (140-400); RED BLOOD COUNT 3.61 x10^6/uL (3.50-5.40); RED CELL DISTRIBUTION WIDTH 14.9 % (11.5-14.5); WHITE BLOOD COUNT 9.7 x10^3/uL (4.0-11.0)
[2020-06-28 08:14] LABS: CALCIUM 8.5 mg/dL (8.5-10.1); CREATININE 3.4 mg/dL (0.6-1.0); GFR 13.9; POTASSIUM 4.2 mmol/L (3.5-5.1)
[2020-06-28] MEDS: CITALOPRAM 20 MG TABLET. PO SCH (08:44)
[2020-06-28] MEDS: ASPIRIN ENTERIC COATED 81 MG TABLET.DR. PO SCH (08:44)
[2020-06-28] MEDS: GABAPENTIN 300 MG CAPSULE. PO SCH ×2 (08:44→19:59)
[2020-06-28] MEDS: INSULIN LISPRO 300 UNITS/3 ML VIAL. SQ SCH ×4 (08:50→17:16)
[2020-06-28] MEDS: METOPROLOL TART IMMED RELEASE 50 MG TABLET. PO SCH ×2 (09:00→19:59)
--- NOTE | 2020-06-28 10:18 | NUR ---
SS following up with discharge planning. SS reviewed pt chart and discussed with pt RN. Pt is currently on room air. Kidney functioning worsening and Nephrology consulted. PT/OT recommended acute rehabilitation. COVID19 test pending for placement. SS met with pt to discuss discharge planning and acute rehabilitation. Pt agreeable to acute rehabilitation and reported that she is from [facility] and would prefer [facility], ; . SS phoned and faxed referral as requested. SS will continue to follow for discharge planning.
--- NOTE | 2020-06-28 10:21 | PDOC2 ---
CONSULT Date of Consult Date of Consult DATE: 06/28/20 TIME: 10:07 Reason for Consult Reason for Consult: FORREST Source Source: Chart review, Patient History of Present Illness Reason for Visit: Pt is a 60-year-old female patient who presented to the Emergency Room of with a complaint of slurring of speech and unsteady on her feet, she noted that the morning before the day for admission to [facility] However, she managed to go to work and come back home. Her symptoms continued, she decided to come to the Emergency Room, where her blood pressure was noted to be extremely high at 206/87. She was also complained of numbness and paresthesia of her hands. Initial non contrast CT scan revealed no acute intracranial process. According to the Emergency Room physician, she was outside the window for TPA and according to document of the Emergency Room physician, her symptoms have completely resolved by the time she was admitted to . Ptient was seen by Dr. Caballero , BP was still high 250/98. She continued to have slurring of speech and right-sided weakness and right-sided facial droop. No acute bleed on CT scan She was started on IV labetalol and hydralazine and was transferred to [facility] for her to consult the neurologist and also to arrange for an MRI and MRA. Patient reports she feels her speech is better. Her PMHx is significant for DM with Diabetic Retinopathy, recently received injection. She reports that she was told many years back that she has proteinuria but was not referred to nephrology. She is not aware of Dx of CKD . She states her BP has never been this high, followed by PCP Dr. Daniel , never seen cardiology Denies any symptoms of UTI, No other urinary complaints. No Hx of Kidney stones..Uses NSAID's very rarely. No use of OTC supplements. No new med changes by PCP. No LE edema ,Wt stable PAST SURGICAL HISTORY: Significant for cholecystectomy, 4 and tubal ligation. HOME MEDICATIONS: atorvastatin, metoprolol tartrate 50 mg twice a day. lisinopril/hydrochlorothiazide 10/12.5 mg once a day, gabapentin 300 mg 3 times a day, citalopram hydrobromide 20 mg daily, metformin 500 mg daily and glipizide 5 mg extended release 1 tablet once a day. Past Medical History Past Medical History Significant for type 2 diabetes mellitus since 2002, hypertension, hype rlipidemia, chronic kidney disease, generalized osteoarthritis, and peripheral neuropathy. Cardiovascular: CAD (Cardiac Cath 02/02/15: Nonobstructive coronary artery disease, normal left ventricle systolic function with ejection fraction estimated at 55%, no significant mitral regurgitation or aortic stenosis. ), HTN CENTRAL NERVOUS SYSTEM: Periperal neuropathy, Other (Restless leg) Psych: Depression Musculoskeletal: Osteoarthritis ENT: Other (Retinal detachment) Renal/: Chronic renal insuff Endocrine: Diabetes Past Surgical History Past Surgical History: Cholecystectomy, , Tubal Ligation, Tonsillectomy (Adenoidectomy) Family History Family History She has 1 half-sister and older brother. Her father at the age of 72, the cause of which is not clear. Mother at age of 47 because of breast cancer. Social History Social History , has 2 sons. She quit smoking in 1984. She does not drink alcohol nor does she smoke marijuana, but used CBD. She is an digital sales assistant, working at [employer]. Current Medications Current Medications Current Medications Potassium Chloride/Sodium Chloride 1,000 ml @ 75 mls/hr [id number] IV Last administered on 06/27/20at 06:37; Start 06/26/20 at 15:00 Aspirin (Ecotrin) 81 mg DAILYWBKFT PO Last administered on 06/28/20at 08:44; Start 06/27/20 at 08:00 Atorvastatin Calcium (Lipitor) 40 mg QHS PO Last administered on 06/27/20at 21:18; Start 06/26/20 at 21:00 Citalopram Hydrobromide (CeleXA) 20 mg DAILY PO Last administered on 06/28/20at 08:44; Start 06/27/20 at 09:00 Info (Icu Electrolyte Protocol) 1 ea CONT PRN PRN MC PER PROTOCOL; Start 06/26/20 at 14:45 Gabapentin (Neurontin) 300 mg BID PO Last administered on 06/28/20at 08:44; Start 06/26/20 at 21:00 Labetalol HCl (Normodyne Iv Push) 20 mg PRN Q2HR PRN IVP HYPERTENSION-1ST CHOICE Last administered on 06/28/20at 04:30; Start 06/26/20 at 14:45 Lisinopril (Prinivil) 10 mg DAILY PO ; Start 06/27/20 at 09:00; Stop 06/28/20 at 09:41; Status DC Metoprolol Tartrate (Lopressor) 50 mg BID PO Last administered on 06/27/20at 21:18; Start 06/26/20 at 21:00 Ondansetron HCl (Zofran) 4 mg PRN Q4HRS PRN IVP NAUSEA/VOMITING Last administered on 06/27/20at 00:45; Start 06/26/20 at 15:00 Hydralazine HCl (Apresoline Inj) 10 mg PRN Q4HRS PRN IVP ELEVATED BP, SEE COMMENTS Last administered on 06/27/20at 10:02; Start 06/26/20 at 15:00 Nicardipine HCl 50 mg/Sodium Chloride 250 ml @ 0 mls/hr CONT PRN PRN IV PER PROTOCOL; Start 06/26/20 at 15:45 Lorazepam (Ativan Inj) 2 mg PRN Q4HRS PRN IVP ANXIETY / AGITATION Last administered on 06/27/20at 15:57; Start 06/26/20 at 15:45 Insulin Human Lispro (HumaLOG) 0-5 UNITS Q6HRS SQ Last administered on 06/27/20at 17:28; Start 06/26/20 at 18:00; Stop 06/28/20 at 02:54; Status DC Dextrose (Dextrose 50%-Water Syringe) 12.5 gm PRN Q15MIN PRN IV SEE COMMENTS; Start 06/26/20 at 15:45 Aspirin (Aspirin Rectal Supp) 300 mg PRN DAILY PRN DC IF UNABLE TO TAKE PO Last administered on 06/26/20at 17:39; Start 06/26/20 at 16:15 Magnesium Sulfate 100 ml @ 50 mls/hr DAILY IV Last administered on 06/26/20at 17:35; Start 06/26/20 at 17:00; Stop 06/30/20 at 16:59 Insulin Human Lispro (HumaLOG) 0-5 UNITS TIDWMEALS SQ Last administered on 06/28/20at 08:50; Start 06/28/20 at 08:45 Active Scripts Active Reported Atorvastatin Calcium 40 Mg Tablet 1 Tab PO DAILY Lisinopril-Hctz 10-12.5 Mg Tab (Lisinopril/Hydrochlorothiazide) 1 Each Tablet 1 Tab PO DAILY Metformin Hcl 500 Mg Tablet 1 Tab PO DAILYWBKFT hold for 48 hours after cardiac catherization Metoprolol Tartrate 25 Mg Tablet 2 Tab PO BID Gabapentin (Gabapentin) 300 Mg Capsule 1 Cap PO TID PRN diabetic neuropathy Citalopram Hbr (Citalopram Hydrobromide) 20 Mg Tablet 1 Tab PO DAILY Allergies Allergies: Coded Allergies: shellfish derived (Verified Allergy, Intermediate, 04/07/15) ROS Review of System As per HPI, rest of the ROS is negative Physical Exam Physical Exam GENERAL:NAD HEEN OM moist, No icterus NECK Supple HEART: S1S2 No gallop or murmur. CHEST: Clear to auscultation. Non labored ABDOMEN: Distended, soft, nontender. NEUROLOGIC: awake, alert, responding appropriately. speech slurred some but understandable right-sided facial droop, right-sided hemiplegia. SKIN No Rash No Dotson EXT No edema Vital Signs Vital Signs Date Time Temp Pulse Resp B/P (MAP) Pulse Ox O2 Delivery O2 Flow Rate FiO2 06/28/20 08:00 97.9 80 16 189/105 (133) 97 Room Air 97.9 06/28/20 04:00 2.0 Assessment & Plan FORREST- ATN, Malignant HTN Baseline unknown, per Pt No Dx of CKD, pn review of chart Dx of CKD + Check UA, Renal US , supportive care, I/O (Bladder scan no pvr), records from pcp. Dw nursing CKD - due to DM/DR, HTN Acute infarct involving chan radiata with resultant right sided hemiplegia./ Chronic cerebellar infarct. Hypertensive emergency Diabetes, II Hypokalemia, hypomagnesemia; replaced Labs Labs Laboratory Tests Test 06/26/20 14:50 06/26/20 17:28 06/26/20 22:25 06/27/20 00:04 White Blood Count 9.4 x10^3/uL (4.0-11.0) Red Blood Count 4.24 x10^6/uL (3.50-5.40) Hemoglobin 11.6 g/dL (12.0-15.5) Hematocrit 34.2 % (36.0-47.0) Mean Corpuscular Volume 81 fL (79-100) Mean Corpuscular Hemoglobin 27 pg (25-35) Mean Corpuscular Hemoglobin Concent 34 g/dL (31-37) Red Cell Distribution Width 14.7 % (11.5-14.5) Platelet Count 237 x10^3/uL (140-400) Neutrophils (%) (Auto) 82 % (31-73) Lymphocytes (%) (Auto) 13 % (24-48) Monocytes (%) (Auto) 4 % (0-9) Eosinophils (%) (Auto) 0 % (0-3) Basophils (%) (Auto) 1 % (0-3) Neutrophils # (Auto) 7.7 x10^3/uL (1.8-7.7) Lymphocytes # (Auto) 1.2 x10^3/uL (1.0-4.8) Monocytes # (Auto) 0.4 x10^3/uL (0.0-1.1) Eosinophils # (Auto) 0.0 x10^3/uL (0.0-0.7) Basophils # (Auto) 0.1 x10^3/uL (0.0-0.2) Sodium Level 143 mmol/L (136-145) Potassium Level 3.9 mmol/L (3.5-5.1) Chloride Level 107 mmol/L (98-107) Carbon Dioxide Level 25 mmol/L (21-32) Anion Gap 11 (6-14) Blood Urea Nitrogen 27 mg/dL (7-20) Creatinine 2.6 mg/dL (0.6-1.0) Estimated GFR (Cockcroft-Gault) 18.9 BUN/Creatinine Ratio 10 (6-20) Glucose Level 253 mg/dL (70-99) Calcium Level 8.8 mg/dL (8.5-10.1) Magnesium Level 1.3 mg/dL (1.8-2.4) 2.5 mg/dL (1.8-2.4) Total Bilirubin 0.5 mg/dL (0.2-1.0) Aspartate Amino Transf (AST/SGOT) 16 U/L (15-37) Alanine Aminotransferase (ALT/SGPT) 17 U/L (14-59) Alkaline Phosphatase 89 U/L (46-116) Total Protein 5.8 g/dL (6.4-8.2) Albumin 2.1 g/dL (3.4-5.0) Albumin/Globulin Ratio 0.6 (1.0-1.7) Triglycerides Level 110 mg/dL (0-150) Cholesterol Level 198 mg/dL (0-200) LDL Cholesterol, Calculated 126 mg/dL (0-100) VLDL Cholesterol, Calculated 22 mg/dL (0-40) Non-HDL Cholesterol Calculated 148 mg/dL (0-129) HDL Cholesterol 50 mg/dL (40-60) Cholesterol/HDL Ratio 4.0 Glucose (Fingerstick) 199 mg/dL (70-99) 187 mg/dL (70-99) Test 06/27/20 06:34 06/27/20 08:00 06/27/20 14:50 06/27/20 17:00 Glucose (Fingerstick) 226 mg/dL (70-99) 308 mg/dL (70-99) 270 mg/dL (70-99) White Blood Count 12.1 x10^3/uL (4.0-11.0) Red Blood Count 4.28 x10^6/uL (3.50-5.40) Hemoglobin 11.5 g/dL (12.0-15.5) Hematocrit 35.5 % (36.0-47.0) Mean Corpuscular Volume 83 fL (79-100) Mean Corpuscular Hemoglobin 27 pg (25-35) Mean Corpuscular Hemoglobin Concent 32 g/dL (31-37) Red Cell Distribution Width 14.6 % (11.5-14.5) Platelet Count 245 x10^3/uL (140-400) Sodium Level 143 mmol/L (136-145) Potassium Level 4.4 mmol/L (3.5-5.1) Chloride Level 109 mmol/L (98-107) Carbon Dioxide Level 24 mmol/L (21-32) Anion Gap 10 (6-14) Blood Urea Nitrogen 27 mg/dL (7-20) Creatinine 2.8 mg/dL (0.6-1.0) Estimated GFR (Cockcroft-Gault) 17.4 Glucose Level 215 mg/dL (70-99) Calcium Level 8.7 mg/dL (8.5-10.1) Magnesium Level 2.4 mg/dL (1.8-2.4) Troponin I Quantitative 0.315 ng/mL (0.000-0.055) Test 06/27/20 23:52 06/28/20 07:15 06/28/20 07:50 Glucose (Fingerstick) 156 mg/dL (70-99) 274 mg/dL (70-99) White Blood Count 9.7 x10^3/uL (4.0-11.0) Red Blood Count 3.61 x10^6/uL (3.50-5.40) Hemoglobin 9.9 g/dL (12.0-15.5) Hematocrit 29.9 % (36.0-47.0) Mean Corpuscular Volume 83 fL (79-100) Mean Corpuscular Hemoglobin 27 pg (25-35) Mean Corpuscular Hemoglobin Concent 33 g/dL (31-37) Red Cell Distribution Width 14.9 % (11.5-14.5) Platelet Count 207 x10^3/uL (140-400) Neutrophils (%) (Auto) 73 % (31-73) Lymphocytes (%) (Auto) 14 % (24-48) Monocytes (%) (Auto) 8 % (0-9) Eosinophils (%) (Auto) 4 % (0-3) Basophils (%) (Auto) 1 % (0-3) Neutrophils # (Auto) 7.1 x10^3/uL (1.8-7.7) Lymphocytes # (Auto) 1.4 x10^3/uL (1.0-4.8) Monocytes # (Auto) 0.7 x10^3/uL (0.0-1.1) Eosinophils # (Auto) 0.4 x10^3/uL (0.0-0.7) Basophils # (Auto) 0.1 x10^3/uL (0.0-0.2) Sodium Level 142 mmol/L (136-145) Potassium Level 4.2 mmol/L (3.5-5.1) Chloride Level 109 mmol/L (98-107) Carbon Dioxide Level 24 mmol/L (21-32) Anion Gap 9 (6-14) Blood Urea Nitrogen 35 mg/dL (7-20) Creatinine 3.4 mg/dL (0.6-1.0) Estimated GFR (Cockcroft-Gault) 13.9 Glucose Level 262 mg/dL (70-99) Calcium Level 8.5 mg/dL (8.5-10.1) Magnesium Level 2.2 mg/dL (1.8-2.4) Laboratory Tests Test 06/27/20 14:50 06/27/20 17:00 06/27/20 23:52 06/28/20 07:15 Glucose (Fingerstick) 308 mg/dL (70-99) 270 mg/dL (70-99) 156 mg/dL (70-99) White Blood Count 9.7 x10^3/uL (4.0-11.0) Red Blood Count 3.61 x10^6/uL (3.50-5.40) Hemoglobin 9.9 g/dL (12.0-15.5) Hematocrit 29.9 % (36.0-47.0) Mean Corpuscular Volume 83 fL (79-100) Mean Corpuscular Hemoglobin 27 pg (25-35) Mean Corpuscular Hemoglobin Concent 33 g/dL (31-37) Red Cell Distribution Width 14.9 % (11.5-14.5) Platelet Count 207 x10^3/uL (140-400) Neutrophils (%) (Auto) 73 % (31-73) Lymphocytes (%) (Auto) 14 % (24-48) Monocytes (%) (Auto) 8 % (0-9) Eosinophils (%) (Auto) 4 % (0-3) Basophils (%) (Auto) 1 % (0-3) Neutrophils # (Auto) 7.1 x10^3/uL (1.8-7.7) Lymphocytes # (Auto) 1.4 x10^3/uL (1.0-4.8) Monocytes # (Auto) 0.7 x10^3/uL (0.0-1.1) Eosinophils # (Auto) 0.4 x10^3/uL (0.0-0.7) Basophils # (Auto) 0.1 x10^3/uL (0.0-0.2) Sodium Level 142 mmol/L (136-145) Potassium Level 4.2 mmol/L (3.5-5.1) Chloride Level 109 mmol/L (98-107) Carbon Dioxide Level 24 mmol/L (21-32) Anion Gap 9 (6-14) Blood Urea Nitrogen 35 mg/dL (7-20) Creatinine 3.4 mg/dL (0.6-1.0) Estimated GFR (Cockcroft-Gault) 13.9 Glucose Level 262 mg/dL (70-99) Calcium Level 8.5 mg/dL (8.5-10.1) Magnesium Level 2.2 mg/dL (1.8-2.4) Test 06/28/20 07:50 Glucose (Fingerstick) 274 mg/dL (70-99) Review All relevant outside records, renal labs, imaging studies, telemetry/EKG's were reviewed. Images Images 1. Intracranially, motion artifact partially distorts several major vessels resulting in nondiagnostic evaluation. Consider CTA for further characterization. 2. Antegrade flow within the bilateral carotid and vertebral arteries. No evidence for high-grade stenosis of the internal carotid arteries, though somewhat limited without intravenous contrast. PARTH ROGERS MD Jun 28, 2020 10:21
[2020-06-28] MEDS ORDERED: MAGNESIUM SULFATE 4GM 100 ML IV PRN (10:30)
--- NOTE | 2020-06-28 11:17 | PDOC ---
MAICE SIMMONS [employer] 06/28/20 1117: CARDIO Progress Notes Date and Time Date of Service 06/28/20 Time of Evaluation 1110 Subjective Subjective: No Chest Pain, No shortness of breath, No Palpitations, No Dizziness Vitals Vitals Vital Signs Date Time Temp Pulse Resp B/P (MAP) Pulse Ox O2 Delivery O2 Flow Rate FiO2 06/28/20 08:00 97.9 80 16 189/105 (133) 97 Room Air 97.9 06/28/20 04:00 2.0 Weight Weight [ ] Input and Output Intake and Output Intake and Output 06/28/20 07:00 Intake Total 2145 ml Output Total 700 ml Balance 1445 ml Intake Oral 1010 ml IV Total 1135 ml Output Urine Total 700 ml # Voids 2 Laboratory Labs Laboratory Tests Test 06/27/20 14:50 06/27/20 17:00 06/27/20 23:52 06/28/20 07:15 Glucose (Fingerstick) 308 mg/dL (70-99) 270 mg/dL (70-99) 156 mg/dL (70-99) White Blood Count 9.7 x10^3/uL (4.0-11.0) Red Blood Count 3.61 x10^6/uL (3.50-5.40) Hemoglobin 9.9 g/dL (12.0-15.5) Hematocrit 29.9 % (36.0-47.0) Mean Corpuscular Volume 83 fL (79-100) Mean Corpuscular Hemoglobin 27 pg (25-35) Mean Corpuscular Hemoglobin Concent 33 g/dL (31-37) Red Cell Distribution Width 14.9 % (11.5-14.5) Platelet Count 207 x10^3/uL (140-400) Neutrophils (%) (Auto) 73 % (31-73) Lymphocytes (%) (Auto) 14 % (24-48) Monocytes (%) (Auto) 8 % (0-9) Eosinophils (%) (Auto) 4 % (0-3) Basophils (%) (Auto) 1 % (0-3) Neutrophils # (Auto) 7.1 x10^3/uL (1.8-7.7) Lymphocytes # (Auto) 1.4 x10^3/uL (1.0-4.8) Monocytes # (Auto) 0.7 x10^3/uL (0.0-1.1) Eosinophils # (Auto) 0.4 x10^3/uL (0.0-0.7) Basophils # (Auto) 0.1 x10^3/uL (0.0-0.2) Sodium Level 142 mmol/L (136-145) Potassium Level 4.2 mmol/L (3.5-5.1) Chloride Level 109 mmol/L (98-107) Carbon Dioxide Level 24 mmol/L (21-32) Anion Gap 9 (6-14) Blood Urea Nitrogen 35 mg/dL (7-20) Creatinine 3.4 mg/dL (0.6-1.0) Estimated GFR (Cockcroft-Gault) 13.9 Glucose Level 262 mg/dL (70-99) Calcium Level 8.5 mg/dL (8.5-10.1) Magnesium Level 2.2 mg/dL (1.8-2.4) Test 06/28/20 07:50 Glucose (Fingerstick) 274 mg/dL (70-99) Physical Exam HEENT: Neck Supple W Full Motion, Other (right facial droop) Chest: Symmetric LUNGS: Clear to Auscultation Heart: RRR Abdomen: Soft N/T Extremities: No Edema, Other (right sided weakness) Neurology: alert, oriented, follow commands Assessment Assessment 1. Acute onset right sided weakness, acute CVA. Echo with preserved LV systolic function. No evidence of ASD or PFO noted. 2. FORREST on CKD; Cr ^ 3.4 3. Hypertensive urgency; labile 4. Elevated troponin; highest 0.16. Most probable type II, demand ischemia in setting of above 5. Hyperlipidemia; statin 6. Diabetes, II 7. Hypokalemia, hypomagnesemia; replaced Recommendations Secondary prevention ASA, statin therapy Continue BB Add Norvasc. No MADELEINE/ARB with FORREST Allow for higher baseline BP Hydralazine, Labetalol IV PRN Rehab modalities Consider outpatient ischemic evaluation Supportive care Follow up in our office with Dr. Watson as scheduled. Justicifation of Admission Dx: Justifications for Admission: Justification of Admission Dx: Yes Stroke - Ischemic: Stroke-Ischemic RONALDO WATSON MD 06/28/20 1450: CARDIO Progress Notes Plan Plan Patient seen and examined. Agree with above nurse practitioner note. Supportive care. MACIE SIMMONS APRN Jun 28, 2020 11:17 RONALDO WATSON MD Jun 28, 2020 17:37
--- NOTE | 2020-06-28 12:17 | PN ---
DATE: 06/28/2020 SUBJECTIVE: The patient is sitting comfortably in her recliner, in no apparent distress, awake, alert. On questioning her, she denies any complaint. She apparently has had her bedside swallowing evaluation and she is on dysphagia level 2 diet with honey-thickened liquid. She apparently had her MRI that showed that she has small area of acute infarct in the left chan radiata, no acute hemorrhage. She has mild chronic small vessel ischemic disease and left cerebellar chronic lacunar infarct. Her MRA of the neck without contrast showed antegrade flow within the bilateral carotid and vertebral arteries. No evidence of high-grade stenosis of the internal carotid arteries. That was somewhat limited without intravenous contrast. Unfortunately, her creatinine has steadily worsened and today her creatinine has risen from 2.6 to 3.4, the cause of which is not really clear. OBJECTIVE: GENERAL: When I examined her, she looked well and was clearly in no apparent respiratory distress. No pallor, jaundice, cyanosis or thyromegaly. No jugular venous distention. No lower limb edema. VITAL SIGNS: Her heart rate was 80, blood pressure was 189/105, temperature was 97.9, respiratory rate was 16, and oxygen saturation was 97% on room air. HEAD, EYES, EARS, NOSE, THROAT: Showed normocephalic, atraumatic. NECK: Supple. HEART: Showed normal first and second heart sounds. No gallop, rub or murmur. CHEST: Clear to auscultation. No crepitation or rhonchi. ABDOMEN: Distended, soft, nontender. No guarding or rigidity. No organomegaly. All hernial orifice intact. Bowel sounds normal. NEUROLOGICAL: She is awake, alert, responding appropriately. She continued to have right sided facial droop and right sided hemiplegia. Her intake over the last 24 hours was 1000, output was 600. LABORATORY DATA: As of this morning, her white cell count was 9700, hemoglobin 10, hematocrit 30, MCV 83, and platelet count 207,000. Her serum sodium 142, potassium 4.2, chloride 109, bicarbonate 24, anion gap of 9, BUN 35, creatinine 3.4, estimated GFR was 14 mL per minute. Her glucose 262, calcium was 8.5. ASSESSMENT: 1. Acute infarct involving chan radiata with resultant right sided hemiplegia. 2. Chronic cerebellar infarct. 3. Hypertension. 4. Hyperlipidemia. 5. Acute on chronic kidney disease. PLAN: My plan is to discontinue lisinopril. We have already consulted the [facility] to assist with management. I also recommended that the patient scan her bladder, and if she is retaining urine, to put an indwelling Dotson catheter. MARIO PEREIRA MD DR: RG/malvin JOB#: [id number] / [id number]
--- NOTE | 2020-06-28 12:54 | RAD ---
Bilateral renal ultrasound and bilateral renal artery duplex ultrasound study without comparison for hypertensive emergency. TECHNIQUE AND FINDINGS: Real-time grayscale and color spectral Doppler evaluation of the kidneys and renal vasculature is performed. Exam is limited by habitus and overlying bowel gas. Visualized portio ns the right kidney are normal in appearance. There is no hydronephrosis. The left kidney is almost e ntirely obscured. Left renal arteries obscured. Aorta is mostly obscured, but demonstrates a mid segm ent peak systolic velocity 154 cm/s. The right renal artery has a maximal peak systolic velocity dist ally 180 cm per sec, and approximately 27 cm/s, constituting a ratio of less than 1. There is no evid ence of renal artery stenosis on the right. IMPRESSION: 1. Markedly limited exam, with no evidence of hemodynamically significant renal artery stenosis on th e right, in complete nonvisualization of the left renal artery. Electronically signed by: Constantin Casillas MD (06/28/2020 12:52 PM) [id number]
--- NOTE | 2020-06-28 15:30 | NUR ---
SS following up with discharge planning. Pt accepted at [facility], ; , pending insurance authorization. SS will continue to follow for discharge planning.
--- NOTE | 2020-06-28 16:45 | PDOC ---
PROGRESS NOTES Date of Service DATE: 06/28/20 TIME: 16:41 Assessment 1. Patient had a lacunar stroke in the left centrum semiovale leading to right hemiparesis without right sensory loss. She also has dysarthric speech. She has not worsened but remains stable. Echocardiogram performed on June 27, 2020 revealed normal systolic function, ejection fraction and no wall motion abnormalities. There was no atrial level defect or cardioembolic source id entified. MR angiography was suboptimal but did not reveal evidence of large vessel occlusion. 2. Diabetic peripheral neuropathy 3. Restless leg syndrome 4. Hypertension 5. Hyperlipidemia-the LDL cholesterol was elevated at 126. Plan 1. Prior to this admission she was mandi to aspirin. Aspirin has been initiated for stroke prevention. 2. We discussed that diabetes is a risk factor for vascular disease. She needs to control the diabetes as tightly as possible. 3. The blood pressure continues to be elevated. I feel it would be safe to start to try to reduce this by 10 mmHg each day until we achieve a goal of 120 systolic. 4. She has been on a statin but the dosage has been increased to try to gain tighter control and reduce the chance of stroke recurrence. 5. She will need transfer to a rehabilitation facility due to the neurologic deficits of right hemiparesis. The deficits are pure motor without any sensory involvement. She will also need speech therapy for dysarthria. Prognosis with vigorous rehabilitation is favorable. Subjective I am feeling okay. I have the weakness on the right side. It initially got worse but then has not worsened since I have been here. I am not in any pain. Objective Vital Signs Date Time Temp Pulse Resp B/P (MAP) Pulse Ox O2 Delivery O2 Flow Rate FiO2 06/28/20 16:00 98.4 94 16 185/74 (111) 94 Room Air 98.4 06/28/20 04:00 2.0 Intake and Output 06/28/20 07:00 Intake Total 2145 ml Output Total 700 ml Balance 1445 ml Intake Oral 1010 ml IV Total 1135 ml Output Urine Total 700 ml # Voids 2 PHYSICAL EXAM She was alert, awake and cooperative. Speech was fluent but dysarthric. Her speech was understandable. Attention and concentration was intact. She appeared well groomed and well nourished. Examination of the cranial nerves revealed visual naranjo were full to confrontation. Extraocular movements were intact. The eyes were conjugate. Pursuit movements were smooth and saccadic eye movements were without dysmetria. Pupils were 3 mm. Facial sensation was intact. Muscles of mastication were powerful symmetrically. Muscles of facial expression revealed some right facial droop and delay of initiation of right smile. There was also delay of right eye opening. Hearing was intact to finger rub bilaterally. The palate arched symmetrically and the tongue was midline. She had weakness with right shoulder shrug. Muscle bulk was symmetric. Tone was increased in the right arm. She had good power on the left side. 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 She had better movement with the right leg with hip and knee flexion and dorsiflexion although power was 4/5. Reflexes were brisker on the right. Right toe was upgoing whereas left was not. Coordination testing was impaired on the right due to weakness. Sensory exam was intact to pain, light touch, proprioception, graphesthesia, cold thermal and vibration. There was no extinction to double simultaneous stimulation. Gait was not testable. Review of Relevant I have reviewed the following items eldon (where applicable) has been applied. Labs Laboratory Tests Test 06/26/20 17:28 06/26/20 22:25 06/27/20 00:04 06/27/20 06:34 Glucose (Fingerstick) 199 mg/dL (70-99) 187 mg/dL (70-99) 226 mg/dL (70-99) Magnesium Level 2.5 mg/dL (1.8-2.4) Test 06/27/20 08:00 06/27/20 14:50 06/27/20 16:27 06/27/20 17:00 White Blood Count 12.1 x10^3/uL (4.0-11.0) Red Blood Count 4.28 x10^6/uL (3.50-5.40) Hemoglobin 11.5 g/dL (12.0-15.5) Hematocrit 35.5 % (36.0-47.0) Mean Corpuscular Volume 83 fL (79-100) Mean Corpuscular Hemoglobin 27 pg (25-35) Mean Corpuscular Hemoglobin Concent 32 g/dL (31-37) Red Cell Distribution Width 14.6 % (11.5-14.5) Platelet Count 245 x10^3/uL (140-400) Sodium Level 143 mmol/L (136-145) Potassium Level 4.4 mmol/L (3.5-5.1) Chloride Level 109 mmol/L (98-107) Carbon Dioxide Level 24 mmol/L (21-32) Anion Gap 10 (6-14) Blood Urea Nitrogen 27 mg/dL (7-20) Creatinine 2.8 mg/dL (0.6-1.0) Estimated GFR (Cockcroft-Gault) 17.4 Glucose Level 215 mg/dL (70-99) Calcium Level 8.7 mg/dL (8.5-10.1) Magnesium Level 2.4 mg/dL (1.8-2.4) Troponin I Quantitative 0.315 ng/mL (0.000-0.055) Glucose (Fingerstick) 308 mg/dL (70-99) 270 mg/dL (70-99) Coronavirus (PCR) Not detected (Not Detected) Test 06/27/20 23:52 06/28/20 07:15 06/28/20 07:50 06/28/20 11:25 Glucose (Fingerstick) 156 mg/dL (70-99) 274 mg/dL (70-99) 207 mg/dL (70-99) White Blood Count 9.7 x10^3/uL (4.0-11.0) Red Blood Count 3.61 x10^6/uL (3.50-5.40) Hemoglobin 9.9 g/dL (12.0-15.5) Hematocrit 29.9 % (36.0-47.0) Mean Corpuscular Volume 83 fL (79-100) Mean Corpuscular Hemoglobin 27 pg (25-35) Mean Corpuscular Hemoglobin Concent 33 g/dL (31-37) Red Cell Distribution Width 14.9 % (11.5-14.5) Platelet Count 207 x10^3/uL (140-400) Neutrophils (%) (Auto) 73 % (31-73) Lymphocytes (%) (Auto) 14 % (24-48) Monocytes (%) (Auto) 8 % (0-9) Eosinophils (%) (Auto) 4 % (0-3) Basophils (%) (Auto) 1 % (0-3) Neutrophils # (Auto) 7.1 x10^3/uL (1.8-7.7) Lymphocytes # (Auto) 1.4 x10^3/uL (1.0-4.8) Monocytes # (Auto) 0.7 x10^3/uL (0.0-1.1) Eosinophils # (Auto) 0.4 x10^3/uL (0.0-0.7) Basophils # (Auto) 0.1 x10^3/uL (0.0-0.2) Sodium Level 142 mmol/L (136-145) Potassium Level 4.2 mmol/L (3.5-5.1) Chloride Level 109 mmol/L (98-107) Carbon Dioxide Level 24 mmol/L (21-32) Anion Gap 9 (6-14) Blood Urea Nitrogen 35 mg/dL (7-20) Creatinine 3.4 mg/dL (0.6-1.0) Estimated GFR (Cockcroft-Gault) 13.9 Glucose Level 262 mg/dL (70-99) Calcium Level 8.5 mg/dL (8.5-10.1) Magnesium Level 2.2 mg/dL (1.8-2.4) Laboratory Tests Test 06/27/20 17:00 06/27/20 23:52 06/28/20 07:15 06/28/20 07:50 Glucose (Fingerstick) 270 mg/dL (70-99) 156 mg/dL (70-99) 274 mg/dL (70-99) White Blood Count 9.7 x10^3/uL (4.0-11.0) Red Blood Count 3.61 x10^6/uL (3.50-5.40) Hemoglobin 9.9 g/dL (12.0-15.5) Hematocrit 29.9 % (36.0-47.0) Mean Corpuscular Volume 83 fL (79-100) Mean Corpuscular Hemoglobin 27 pg (25-35) Mean Corpuscular Hemoglobin Concent 33 g/dL (31-37) Red Cell Distribution Width 14.9 % (11.5-14.5) Platelet Count 207 x10^3/uL (140-400) Neutrophils (%) (Auto) 73 % (31-73) Lymphocytes (%) (Auto) 14 % (24-48) Monocytes (%) (Auto) 8 % (0-9) Eosinophils (%) (Auto) 4 % (0-3) Basophils (%) (Auto) 1 % (0-3) Neutrophils # (Auto) 7.1 x10^3/uL (1.8-7.7) Lymphocytes # (Auto) 1.4 x10^3/uL (1.0-4.8) Monocytes # (Auto) 0.7 x10^3/uL (0.0-1.1) Eosinophils # (Auto) 0.4 x10^3/uL (0.0-0.7) Basophils # (Auto) 0.1 x10^3/uL (0.0-0.2) Sodium Level 142 mmol/L (136-145) Potassium Level 4.2 mmol/L (3.5-5.1) Chloride Level 109 mmol/L (98-107) Carbon Dioxide Level 24 mmol/L (21-32) Anion Gap 9 (6-14) Blood Urea Nitrogen 35 mg/dL (7-20) Creatinine 3.4 mg/dL (0.6-1.0) Estimated GFR (Cockcroft-Gault) 13.9 Glucose Level 262 mg/dL (70-99) Calcium Level 8.5 mg/dL (8.5-10.1) Magnesium Level 2.2 mg/dL (1.8-2.4) Test 06/28/20 11:25 Glucose (Fingerstick) 207 mg/dL (70-99) Medications Current Medications Potassium Chloride/Sodium Chloride 1,000 ml @ 75 mls/hr [id number] IV Last administered on 06/27/20at 06:37; Start 06/26/20 at 15:00 Aspirin (Ecotrin) 81 mg DAILYWBKFT PO Last administered on 06/28/20at 08:44; Start 06/27/20 at 08:00 Atorvastatin Calcium (Lipitor) 40 mg QHS PO Last administered on 06/27/20at 21:18; Start 06/26/20 at 21:00 Citalopram Hydrobromide (CeleXA) 20 mg DAILY PO Last administered on 06/28/20at 08:44; Start 06/27/20 at 09:00 Info (Icu Electrolyte Protocol) 1 ea CONT PRN PRN MC PER PROTOCOL; Start 06/26/20 at 14:45 Gabapentin (Neurontin) 300 mg BID PO Last administered on 06/28/20at 08:44; Start 06/26/20 at 21:00 Labetalol HCl (Normodyne Iv Push) 20 mg PRN Q2HR PRN IVP HYPERTENSION-1ST CHOICE Last administered on 06/28/20at 04:30; Start 06/26/20 at 14:45 Lisinopril (Prinivil) 10 mg DAILY PO ; Start 06/27/20 at 09:00; Stop 06/28/20 at 09:41; Status DC Metoprolol Tartrate (Lopressor) 50 mg BID PO Last administered on 06/27/20at 21:18; Start 06/26/20 at 21:00 Ondansetron HCl (Zofran) 4 mg PRN Q4HRS PRN IVP NAUSEA/VOMITING Last administered on 06/27/20at 00:45; Start 06/26/20 at 15:00 Hydralazine HCl (Apresoline Inj) 10 mg PRN Q4HRS PRN IVP ELEVATED BP, SEE COMMENTS Last administered on 06/27/20at 10:02; Start 06/26/20 at 15:00 Nicardipine HCl 50 mg/Sodium Chloride 250 ml @ 0 mls/hr CONT PRN PRN IV PER PROTOCOL; Start 06/26/20 at 15:45 Lorazepam (Ativan Inj) 2 mg PRN Q4HRS PRN IVP ANXIETY / AGITATION Last administered on 06/27/20at 15:57; Start 06/26/20 at 15:45 Insulin Human Lispro (HumaLOG) 0-5 UNITS Q6HRS SQ Last administered on 06/27/20at 17:28; Start 06/26/20 at 18:00; Stop 06/28/20 at 02:54; Status DC Dextrose (Dextrose 50%-Water Syringe) 12.5 gm PRN Q15MIN PRN IV SEE COMMENTS; Start 06/26/20 at 15:45 Aspirin (Aspirin Rectal Supp) 300 mg PRN DAILY PRN HI IF UNABLE TO TAKE PO Last administered on 06/26/20at 17:39; Start 06/26/20 at 16:15 Magnesium Sulfate 100 ml @ 50 mls/hr DAILY IV Last administered on 06/26/20at 17:35; Start 06/26/20 at 17:00; Stop 06/28/20 at 10:23; Status DC Insulin Human Lispro (HumaLOG) 0-5 UNITS TIDWMEALS SQ Last administered on 06/28/20at 12:42; Start 06/28/20 at 08:45 Magnesium Sulfate 100 ml @ 50 mls/hr PRN DAILY PRN IV SEE ORDER COMMENTS; Start 06/28/20 at 10:30 Amlodipine Besylate (Norvasc) 5 mg DAILY PO ; Start 06/28/20 at 12:00 Active Scripts Active Reported Atorvastatin Calcium 40 Mg Tablet 1 Tab PO DAILY Lisinopril-Hctz 10-12.5 Mg Tab (Lisinopril/Hydrochlorothiazide) 1 Each Tablet 1 Tab PO DAILY Metformin Hcl 500 Mg Tablet 1 Tab PO DAILYWBKFT hold for 48 hours after cardiac catherization Metoprolol Tartrate 25 Mg Tablet 2 Tab PO BID Gabapentin (Gabapentin) 300 Mg Capsule 1 Cap PO TID PRN diabetic neuropathy Citalopram Hbr (Citalopram Hydrobromide) 20 Mg Tablet 1 Tab PO DAILY Vitals/I & O Vital Sign - Last 24 Hours 06/27/20 06/27/20 06/27/20 06/28/20 20:00 20:00 21:18 00:00 Temp 98.7 98.2 98.7 98.2 Pulse 92 89 76 Resp 19 16 B/P (MAP) 153/66 (95) 178/71 171/94 (119) Pulse Ox 98 98 O2 Delivery Nasal Cannula Nasal Cannula Nasal Cannula O2 Flow Rate 2.0 2.0 2.0 06/28/20 06/28/20 06/28/20 06/28/20 04:00 04:30 07:59 08:00 Temp 98.2 97.9 98.2 97.9 Pulse 72 71 80 Resp 17 16 B/P (MAP) 185/83 (117) 185/83 189/105 (133) Pulse Ox 97 97 O2 Delivery Nasal Cannula Room Air Room Air O2 Flow Rate 2.0 06/28/20 06/28/20 06/28/20 12:00 14:30 16:00 Temp 98.4 98.4 Pulse 81 83 94 Resp 18 16 16 B/P (MAP) 178/80 (112) 180/74 (109) 185/74 (111) Pulse Ox 95 93 94 O2 Delivery Room Air Room Air Room Air Intake and Output 06/27/20 06/27/20 06/28/20 15:00 23:00 07:00 Intake Total 180 ml 1133 ml 832 ml Output Total 450 ml 250 ml 0 ml Balance -270 ml 883 ml 832 ml Justicifation of Admission Dx: Justifications for Admission: Justification of Admission Dx: Yes Stroke - Ischemic: Stroke-Ischemic HERNAN HUNTLEY MD Jun 28, 2020 16:45
--- NOTE | 2020-06-28 16:45 | NUR ---
pt transferred from icu to room 202. NIHSS was completed by this RN and Mack QURESHI.
--- NOTE | 2020-06-28 16:52 | NUR ---
Patient transfer to room 202. Patient belongings with patient at time of transfer. Telephone report given to Rox Falcon. Plan of Care reviewed. NIH done at time of transfer with ROX Falcon. Patient NIH score is 6.
[2020-06-28 17:44] LABS: BILIRUBIN,URINE NEGATIVE (NEG); CLARITY,URINE CLOUDY; COLOR,URINE YELLOW; NITRITE,URINE NEGATIVE (NEG); PROTEIN,URINE >=300 mg/dL (NEG-TRACE)
[2020-06-28 17:50] LABS: BACTERIA,URINE MANY /HPF (0-FEW)
[2020-06-28 17:51] LABS: WBC,URINE >40 /HPF (0-4)
[2020-06-28 18:20] LABS: CREATININE,RANDOM URINE 240.3 mg/dL (Not Establ.)
[2020-06-28] MEDS: ATORVASTATIN CALCIUM 40 MG TABLET. PO SCH (19:58)
[2020-06-29] VITALS (7 sets, daily range): BP systolic 137–194; BP diastolic 63–87
[2020-06-29] MEDS: LABETALOL 20 MG/4 ML DISP.SYRIN. IVP PRN ×2 (03:23→22:53)
[2020-06-29 07:16] LABS: ALBUMIN 1.6 g/dL (3.4-5.0); ALBUMIN/GLOBULIN RATIO 0.5 (1.0-1.7); CALCIUM 8.2 mg/dL (8.5-10.1); CREATININE 3.3 mg/dL (0.6-1.0); GFR 14.4; POTASSIUM 4.2 mmol/L (3.5-5.1); TOTAL BILIRUBIN 0.4 mg/dL (0.2-1.0); TOTAL PROTEIN 4.8 g/dL (6.4-8.2)
[2020-06-29] MEDS: ASPIRIN ENTERIC COATED 81 MG TABLET.DR. PO SCH (08:09)
[2020-06-29] MEDS: GABAPENTIN 300 MG CAPSULE. PO SCH ×2 (08:09→20:57)
[2020-06-29] MEDS: CITALOPRAM 20 MG TABLET. PO SCH (08:10)
[2020-06-29] MEDS: METOPROLOL TART IMMED RELEASE 50 MG TABLET. PO SCH ×2 (08:26→20:57)
[2020-06-29] MEDS: INSULIN LISPRO 300 UNITS/3 ML VIAL. SQ SCH ×3 (08:30→17:14)
--- NOTE | 2020-06-29 09:14 | PDOC ---
DATE OF SERVICE DATE: 06/29/20 TIME: 09:09 SUBJECTIVE ROS stable OBJECTIVE Vital Signs Vital Signs Date Time Temp Pulse Resp B/P (MAP) Pulse Ox O2 Delivery O2 Flow Rate FiO2 06/29/20 08:27 77 172/82 06/29/20 07:00 98.0 16 97 Nasal Cannula 2.0 98.0 I & 0 Intake and Output 06/29/20 07:00 Intake Total 1915 ml Output Total 650 ml Balance 1265 ml Intake Oral 1915 ml Output Urine Total 650 ml # Voids 2 # Bowel Movements 2 PHYSICAL EXAM Physical Exam GENERAL:NAD HEEN OM moist, No icterus NECK Supple HEART: S1S2 No gallop or murmur. CHEST: Clear to auscultation. Non labored ABDOMEN: Distended, soft, nontender. NEUROLOGIC: awake, alert, responding appropriately. speech slurred some but understandable right-sided facial droop, right-sided hemiplegia. SKIN No Rash No [place] EXT No edema DIAGNOSIS/ASSESSMENT Assessment & Plan FORREST- ATN, Malignant HTN Baseline unknown, per Pt No Dx of CKD, pn review of chart Dx of CKD + UA wbc 's + - ? 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 Currently WB C's + as well . Lisinopril held sec to FORREST CKD - due to DM/DR, HTN . Pt states never been told Acute infarct involving chan radiata with resultant right sided hemiplegia./ Chronic cerebellar infarct. Hypertensive emergency - wrist was being used this am for BP, recommend appropriate size arm cuff Diabetes, II Hypokalemia, hypomagnesemia; resolved COMMENT/RELEVANT DATA Meds Current Medications Medications (Trade) Dose Ordered Sig/[place] Start Time Stop Time Status Last Admin Dose Admin Amlodipine Besylate (Norvasc) 5 mg DAILY 06/28/20 12:00 06/29/20 08:27 5 MG Aspirin (Aspirin Rectal Supp) 300 mg PRN DAILY PRN 06/26/20 16:15 06/26/20 17:39 300 MG Aspirin (Ecotrin) 81 mg DAILYWBKFT 06/27/20 08:00 2/5/21 08:09 81 MG Atorvastatin Calcium (Lipitor) 40 mg QHS 06/26/20 21:00 06/28/20 19:58 40 MG Citalopram Hydrobromide (CeleXA) 20 mg DAILY 06/27/20 09:00 06/29/20 08:10 20 MG Dextrose (Dextrose 50%-Water Syringe) 12.5 gm PRN Q15MIN PRN 06/26/20 15:45 Gabapentin (Neurontin) 300 mg BID 06/26/20 21:00 06/29/20 08:09 300 MG Hydralazine HCl (Apresoline Inj) 10 mg PRN Q4HRS PRN 06/26/20 15:00 06/27/20 10:02 10 MG Info (Icu Electrolyte Protocol) 1 ea CONT PRN PRN 06/26/20 14:45 Insulin Human Lispro (HumaLOG) 0-5 UNITS TIDWMEALS 06/28/20 08:45 06/29/20 08:30 2 UNITS Labetalol HCl (Normodyne Iv Push) 20 mg PRN Q2HR PRN 06/26/20 14:45 06/29/20 03:23 20 MG Lisinopril (Prinivil) 10 mg DAILY 06/27/20 09:00 06/28/20 09:41 DC Lorazepam (Ativan Inj) 2 mg PRN Q4HRS PRN 06/26/20 15:45 06/27/20 15:57 2 MG Magnesium Sulfate 100 ml @ 50 mls/hr PRN DAILY PRN 06/28/20 10:30 Metoprolol Tartrate (Lopressor) 50 mg BID 06/26/20 21:00 06/29/20 08:26 50 MG Nicardipine HCl 50 mg/Sodium Chloride 250 ml @ 0 mls/hr CONT PRN PRN 06/26/20 15:45 Ondansetron HCl (Zofran) 4 mg PRN Q4HRS PRN 06/26/20 15:00 06/27/20 00:45 4 MG Potassium Chloride/Sodium Chloride 1,000 ml @ 75 mls/hr [id number] 06/26/20 15:00 06/28/20 16:57 DC 06/27/20 06:37 75 MLS/HR Lab Laboratory Tests Test 06/28/20 11:25 06/28/20 17:04 06/28/20 17:30 06/28/20 21:07 Glucose (Fingerstick) 207 mg/dL (70-99) 199 mg/dL (70-99) 210 mg/dL (70-99) Urine Collection Type Unknown Urine Color Yellow Urine Clarity Cloudy Urine pH 6.0 (<5.0-8.0) Urine Specific [place] >=1.030 (1.000-1.030) Urine Protein >=300 mg/dL (NEG-TRACE) Urine Glucose (UA) 500 mg/dL (NEG) Urine Ketones (Stick) Negative mg/dL (NEG) Urine Blood Small (NEG) Urine Nitrite Negative (NEG) Urine Bilirubin Negative (NEG) Urine Urobilinogen Dipstick 1.0 mg/dL (0.2 mg/dL) Urine Leukocyte Esterase Small (NEG) Urine RBC 3-5 /HPF (0-2) Urine WBC >40 /HPF (0-4) Urine Squamous Epithelial Cells Mod /LPF Urine Bacteria Many /HPF (0-FEW) Urine Random Creatinine 240.3 mg/dL (Not Establ.) Urine Random Total Protein 2386.1 mg/dL (Not Establ.) Urine Protein/Creatinine Ratio 9930 mg/g (0-200) Test 06/29/20 06:35 06/29/20 07:27 Sodium Level 140 mmol/L (136-145) Potassium Level 4.2 mmol/L (3.5-5.1) Chloride Level 109 mmol/L (98-107) Carbon Dioxide Level 24 mmol/L (21-32) Anion Gap 7 (6-14) Blood Urea Nitrogen 36 mg/dL (7-20) Creatinine 3.3 mg/dL (0.6-1.0) Estimated GFR (Cockcroft-Gault) 14.4 BUN/Creatinine Ratio 11 (6-20) Glucose Level 172 mg/dL (70-99) Calcium Level 8.2 mg/dL (8.5-10.1) Total Bilirubin 0.4 mg/dL (0.2-1.0) Aspartate Amino Transf (AST/SGOT) 13 U/L (15-37) Alanine Aminotransferase (ALT/SGPT) 13 U/L (14-59) Alkaline Phosphatase 65 U/L (46-116) Total Protein 4.8 g/dL (6.4-8.2) Albumin 1.6 g/dL (3.4-5.0) Albumin/Globulin Ratio 0.5 (1.0-1.7) Glucose (Fingerstick) 182 mg/dL (70-99) Results All relevant outside records, renal labs, imaging studies, telemetry/EKG's were reviewed. Justicifation of Admission Dx: Justifications for Admission: Justification of Admission Dx: Yes Stroke - Ischemic: Stroke-Ischemic PARTH ROGERS MD Jun 29, 2020 09:13
--- NOTE | 2020-06-29 09:35 | PN ---
DATE: 06/29/2020 SUBJECTIVE: The patient is sitting comfortably in her chair, eating her breakfast. On questioning her, she denied any complaints. She apparently has managed to walk with physical therapy using a gait belt. Her only concern is when she would be able to drink thin liquid. Her creatinine is still elevated, but trending down. As of yesterday, it was 3.4, today it was 3.3. PHYSICAL EXAMINATION: GENERAL: When I examined her, she looked well and was clearly in no apparent respiratory distress, pale, but not jaundiced, cyanosed or thyromegaly. No jugular venous distension. No lower limb edema. VITAL SIGNS: Her heart rate was 77, blood pressure was 172/82, temperature was 98, respiratory rate was 16, and oxygen saturation was 97% on 2 liters of oxygen. HEAD, EYES, EARS, NOSE, AND THROAT: Showed normocephalic, atraumatic. NECK: Supple. HEART: Showed normal first and second heart sounds. No gallop, rub or murmur. CHEST: Clear to auscultation. No crepitation or rhonchi. ABDOMEN: Distended, soft, nontender. NEUROLOGIC: She is awake, alert, responding appropriately. She continued to have dysarthria, right-sided facial droop and right-sided hemiplegia. Her intake was 2100, output was 700. LABORATORY DATA: Her most recent white cell count was 9700; hemoglobin 10; hematocrit 30; MCV 83; and platelet count 207,000. Her serum sodium was 140, potassium 4.2, chloride 109, bicarbonate 24, anion gap of 7, BUN 36, creatinine 3.3, estimated GFR was 14 mL per minute. Her glucose 172, calcium was 8.2. Total bilirubin, AST, ALT, alkaline phosphatase were normal. Total protein was 4.8, albumin was 1.6. ASSESSMENT: 1. Acute infarct involving left-sided chan radiata with resultant right-sided hemiplegia. 2. Chronic cerebellar infarct. 3. Hypertension. 4. Hyperlipidemia. 5. Acute on chronic kidney injury. I did discontinue her lisinopril. She was seen by the manager in home and apparently had had renal Duplex ultrasound. Apparently, there is no evidence of hemodynamically significant renal artery stenosis on the right, incomplete nonvisualization of the left renal artery. PLAN: My plan is to continue obviously with physical and occupational therapy. She is now on amlodipine 5 mg once a day. I will repeat her lab work tomorrow and once her creatinine is near baseline, the [facility] to continue with the process of rehabilitation. MARIO PEREIRA MD DR: RG/malvin JOB#: [id number] / [id number]
--- NOTE | 2020-06-29 10:24 | NUR ---
SW following. Chart reviewed. Pt accepted at [facility], pending insurance auth. ASHVIN contacted [facility] to determine if insurance had decided - they have not yet submitted for auth as they were told pt wouldn't be ready until next week. SW requested they submit for insurance auth because pt having labs rechecked tomorrow (06/30/20) and can discharge if creatinine is at baseline. Awaiting insurance auth. Pt can discharge over the weekend, if insurance approves. SW provided floor phone number to the facility. SW will continue to follow.
[2020-06-29] MEDS: hydrALAZINE 20 MG/ML VIAL. IVP PRN (11:03)
--- NOTE | 2020-06-29 14:20 | NUR ---
Patient called out for help to use restroom. Prior to arriving to assist patient, I heard her yield "help" and simultaneously a loud noise like something landed on ground. Immediately, I walked into patient room and saw her sitting on the floor. Patient reported that tried to stand and could not maintain her balance. She denied hitting her head. No injuries noted. MD notified. See chart for additional information.
[2020-06-29] MEDS: cefTRIAXone IV Push 1 GM VIAL. IVP SCH (15:06)
--- NOTE | 2020-06-29 15:49 | NUR ---
Post residual after urinating 200cc was zero. l
[2020-06-29] MEDS ORDERED: CICL34.6 TP (16:06)
[2020-06-29] MEDS ORDERED: METO-239 PO (16:06)
[2020-06-29] MEDS ORDERED: METF500T16 PO (16:06)
[2020-06-29] MEDS ORDERED: GLIP-24 PO (16:06)
[2020-06-29] MEDS ORDERED: EMPA10TA PO (16:06)
[2020-06-29] MEDS: ATORVASTATIN CALCIUM 40 MG TABLET. PO SCH (20:57)
[2020-06-29] MEDS ORDERED: rOPINIRole 0.25 MG TABLET. PO ONE (22:00)
[2020-06-30 03:12] VITALS: BP 180/84
[2020-06-30] MEDS: LABETALOL 20 MG/4 ML DISP.SYRIN. IVP PRN (03:14)
[2020-06-30 07:15] VITALS: BP 176/84
[2020-06-30] MEDS: GABAPENTIN 300 MG CAPSULE. PO SCH ×2 (08:37→21:11)
[2020-06-30] MEDS: METOPROLOL TART IMMED RELEASE 50 MG TABLET. PO SCH ×2 (08:37→21:11)
[2020-06-30] MEDS: CITALOPRAM 20 MG TABLET. PO SCH (08:37)
[2020-06-30] MEDS: ASPIRIN ENTERIC COATED 81 MG TABLET.DR. PO SCH (08:38)
[2020-06-30] MEDS: INSULIN LISPRO 300 UNITS/3 ML VIAL. SQ SCH ×3 (08:45→17:10)
[2020-06-30 09:25] LABS: CALCIUM 8.4 mg/dL (8.5-10.1); CREATININE 3.2 mg/dL (0.6-1.0); GFR 14.9; POTASSIUM 4.1 mmol/L (3.5-5.1)
[2020-06-30 10:27] VITALS: BP 166/79
--- NOTE | 2020-06-30 10:43 | PN ---
DATE: 06/30/2020 SUBJECTIVE: The patient is resting, slightly propped up in bed, in her recliner, in no apparent distress. On questioning her, she denied any complaint. The nursing staff stated that her blood pressure continued to be elevated and her kidney function continued to be abnormal. Her creatinine is still high at 3.2. PHYSICAL EXAMINATION: GENERAL: When I examined her, she was pale, but not jaundiced or cyanosed or thyromegaly. No jugular venous distention. No lower limb edema. VITAL SIGNS: Her heart rate was 72, blood pressure was 176/84. Her temperature was 98.3, respiratory rate was 18 and oxygen saturation was 97% on 2 liters of oxygen. HEAD, EYES, EARS, NOSE, AND THROAT: Showed normocephalic, atraumatic. NECK: Supple. HEART: Normal first and second heart sounds. No gallop or murmur. CHEST: Clear to auscultation. No crepitation or rhonchi. ABDOMEN: Distended, soft, nontender. NEUROLOGIC: She is awake, alert, continued to have slurring speech and right-sided facial droop and right-sided hemiplegia. Her intake over the last 24 hours was 1900, output was 650. LABORATORY DATA: As of this morning, her serum sodium was 139, potassium 4.1, chloride 105, bicarbonate 24, anion gap of 10, BUN 42, creatinine 3.2, estimated GFR was 14 mL per minute. Her glucose 174, calcium was 8.4. ASSESSMENT: 1. Acute infarct involving left-sided chan radiata with resultant right-sided hemiplegia, slurring of speech and right-sided facial droop. 2. Chronic cerebellar infarct. 3. Hypertension. 4. Hyperlipidemia. 5. Acute on chronic kidney injury, for which I discontinued her lisinopril. The ultrasound showed no evidence of renal artery stenosis, although they did not report the size of the kidneys. PLAN: Is to continue with physical and occupational therapy, continue to monitor her lab work and await the evaluation by the factory lay out engineer. Apart from high blood pressure, there is no indication for hemodialysis. MARIO PEREIRA MD DR: RG/malvin JOB#: [id number] / [id number]
--- NOTE | 2020-06-30 13:23 | PDOC ---
PROGRESS NOTES Date of Service DATE: 06/30/20 TIME: 13:16 Assessment 1. Patient had a lacunar stroke in the left centrum semiovale leading to right hemiparesis without right sensory loss. She also has dysarthric speech. She has not worsened but remains stable. Echocardiogram performed on June 27, 2020 revealed normal systolic function, ejection fraction and no wall motion abnormalities. There was no atrial level defect or cardioembolic source id entified. MR angiography was suboptimal but did not reveal evidence of large vessel occlusion. She is working on exercises that she is learned through speech, physical and Occupational Therapy. 2. Diabetic peripheral neuropathy 3. Restless leg syndrome 4. Hypertension 5. Hyperlipidemia-the LDL cholesterol was elevated at 126. 6. Kidney failure-patient believes that she has had an elevated creatinine prior to this admission. The creatinine is very slowly improving but remaining quite elevated at 3.2. Plan 1. Prior to this admission she was mandi to aspirin. Aspirin has been initiated for stroke prevention. 2. We discussed that diabetes is a risk factor for vascular disease. She needs to control the diabetes as tightly as possible. 3. The blood pressure continues to be elevated. I feel it would be safe to start to try to reduce blood pressure over the course of the next few weeks to 120/80. Increasing amlodipine is fine from my perspective but should be checked with nephrology service. 4. She has been on a statin but the dosage has been increased to try to gain tighter control and reduce the chance of stroke recurrence. 5. She will need transfer to a rehabilitation facility due to the neurologic deficits of right hemiparesis. The deficits are pure motor without any sensory involvement. She will also need speech therapy for dysarthria. Prognosis with vigorous rehabilitation is favorable. Objective Vital Signs Date Time Temp Pulse Resp B/P (MAP) Pulse Ox O2 Delivery O2 Flow Rate FiO2 06/30/20 10:27 98.3 70 18 166/79 (108) 97 Nasal Cannula 2.0 98.3 Intake and Output 06/30/20 07:00 Intake Total 750 ml Output Total 930 ml Balance -180 ml Intake Oral 750 ml Output Urine Total 930 ml # Bowel Movements 1 PHYSICAL EXAM She was alert, awake and cooperative. She was sitting in a Mary chair. She was watching television in no distress. She was oriented. Speech was flaccidly dysarthric but understandable. Examination of the cranial nerves revealed visual naranjo were full to confrontation. Extraocular movements were intact. The eyes were conjugate. Pursuit movements were smooth and saccadic eye movements were without dysmetria. Pupils were 3 mm and reacted. Facial sensation was intact bilaterally. The muscles of mastication were powerful symmetrically. She had a right facial droop and incomplete right smile with delay of initiation of movement. Eye closure was powerful as was eye opening without any delay. Hearing was intact to finger rub. The palate arched symmetr ically and the tongue was midline. There was some delay and weakness with right shoulder shrug. Muscle bulk was symmetric. Tone was not spastic. Power was full on the left. She had fairly good power of the right leg with good dorsi and plantar flexion and knee flexion and extension. She had weakness with hip extension. Right arm was extremely weak with only trace movements at the fingers, wrist, elbow and shoulder. Reflexes 2/4 in the upper and lower extremities except absent at the ankles. Coordination testing with [id number], [id number], fine motor and rapid alternating movements was performed well on the left. She could not do this with the right hand due to weakness. She had some ataxia with right leg [id number] due to weakness. Sensation was intact to light touch, sharp, cold thermal and vibration bilaterally. There was no extinction to double simultaneous stimulation. Gait was not testable. Review of Relevant I have reviewed the following items eldon (where applicable) has been applied. Labs Laboratory Tests Test 06/28/20 17:04 06/28/20 17:30 06/28/20 21:07 06/29/20 06:35 Glucose (Fingerstick) 199 mg/dL (70-99) 210 mg/dL (70-99) Urine Collection Type Unknown Urine Color Yellow Urine Clarity Cloudy Urine pH 6.0 (<5.0-8.0) Urine Specific [place] >=1.030 (1.000-1.030) Urine Protein >=300 mg/dL (NEG-TRACE) Urine Glucose (UA) 500 mg/dL (NEG) Urine Ketones (Stick) Negative mg/dL (NEG) Urine Blood Small (NEG) Urine Nitrite Negative (NEG) Urine Bilirubin Negative (NEG) Urine Urobilinogen Dipstick 1.0 mg/dL (0.2 mg/dL) Urine Leukocyte Esterase Small (NEG) Urine RBC 3-5 /HPF (0-2) Urine WBC >40 /HPF (0-4) Urine Squamous Epithelial Cells Mod /LPF Urine Bacteria Many /HPF (0-FEW) Urine Random Creatinine 240.3 mg/dL (Not Establ.) Urine Random Total Protein 2386.1 mg/dL (Not Establ.) Urine Protein/Creatinine Ratio 9930 mg/g (0-200) Sodium Level 140 mmol/L (136-145) Potassium Level 4.2 mmol/L (3.5-5.1) Chloride Level 109 mmol/L (98-107) Carbon Dioxide Level 24 mmol/L (21-32) Anion Gap 7 (6-14) Blood Urea Nitrogen 36 mg/dL (7-20) Creatinine 3.3 mg/dL (0.6-1.0) Estimated GFR (Cockcroft-Gault) 14.4 BUN/Creatinine Ratio 11 (6-20) Glucose Level 172 mg/dL (70-99) Calcium Level 8.2 mg/dL (8.5-10.1) Total Bilirubin 0.4 mg/dL (0.2-1.0) Aspartate Amino Transf (AST/SGOT) 13 U/L (15-37) Alanine Aminotransferase (ALT/SGPT) 13 U/L (14-59) Alkaline Phosphatase 65 U/L (46-116) Total Protein 4.8 g/dL (6.4-8.2) Albumin 1.6 g/dL (3.4-5.0) Albumin/Globulin Ratio 0.5 (1.0-1.7) Test 06/29/20 07:27 06/29/20 11:43 06/29/20 17:09 06/29/20 22:16 Glucose (Fingerstick) 182 mg/dL (70-99) 194 mg/dL (70-99) 192 mg/dL (70-99) 177 mg/dL (70-99) Test 06/30/20 06:54 06/30/20 07:55 06/30/20 11:17 Glucose (Fingerstick) 182 mg/dL (70-99) 204 mg/dL (70-99) Sodium Level 139 mmol/L (136-145) Potassium Level 4.1 mmol/L (3.5-5.1) Chloride Level 105 mmol/L (98-107) Carbon Dioxide Level 24 mmol/L (21-32) Anion Gap 10 (6-14) Blood Urea Nitrogen 42 mg/dL (7-20) Creatinine 3.2 mg/dL (0.6-1.0) Estimated GFR (Cockcroft-Gault) 14.9 Glucose Level 174 mg/dL (70-99) Calcium Level 8.4 mg/dL (8.5-10.1) Laboratory Tests Test 06/29/20 17:09 06/29/20 22:16 06/30/20 06:54 06/30/20 07:55 Glucose (Fingerstick) 192 mg/dL (70-99) 177 mg/dL (70-99) 182 mg/dL (70-99) Sodium Level 139 mmol/L (136-145) Potassium Level 4.1 mmol/L (3.5-5.1) Chloride Level 105 mmol/L (98-107) Carbon Dioxide Level 24 mmol/L (21-32) Anion Gap 10 (6-14) Blood Urea Nitrogen 42 mg/dL (7-20) Creatinine 3.2 mg/dL (0.6-1.0) Estimated GFR (Cockcroft-Gault) 14.9 Glucose Level 174 mg/dL (70-99) Calcium Level 8.4 mg/dL (8.5-10.1) Test 06/30/20 11:17 Glucose (Fingerstick) 204 mg/dL (70-99) Microbiology 06/28/20 Urine Culture - Final, Complete Medications Current Medications Potassium Chloride/Sodium Chloride 1,000 ml @ 75 mls/hr [id number] IV Last administered on 06/27/20at 06:37; Start 06/26/20 at 15:00; Stop 06/28/20 at 16:57; Status DC Aspirin (Ecotrin) 81 mg DAILYWBKFT PO Last administered on 06/30/20at 08:38; Start 06/27/20 at 08:00 Atorvastatin Calcium (Lipitor) 40 mg QHS PO Last administered on 06/29/20at 20:57; Start 06/26/20 at 21:00 Citalopram Hydrobromide (CeleXA) 20 mg DAILY PO Last administered on 06/30/20at 08:37; Start 06/27/20 at 09:00 Info (Icu Electrolyte Protocol) 1 ea CONT PRN PRN MC PER PROTOCOL; Start 06/26/20 at 14:45 Gabapentin (Neurontin) 300 mg BID PO Last administered on 06/30/20at 08:37; Start 06/26/20 at 21:00 Labetalol HCl (Normodyne Iv Push) 20 mg PRN Q2HR PRN IVP HYPERTENSION-1ST CHOICE Last administered on 06/30/20at 03:14; Start 06/26/20 at 14:45 Lisinopril (Prinivil) 10 mg DAILY PO ; Start 06/27/20 at 09:00; Stop 06/28/20 at 09:41; Status DC Metoprolol Tartrate (Lopressor) 50 mg BID PO Last administered on 06/30/20at 08:37; Start 06/26/20 at 21:00 Ondansetron HCl (Zofran) 4 mg PRN Q4HRS PRN IVP NAUSEA/VOMITING Last administered on 06/27/20at 00:45; Start 06/26/20 at 15:00 Hydralazine HCl (Apresoline Inj) 10 mg PRN Q4HRS PRN IVP ELEVATED BP, SEE COMMENTS Last administered on 06/29/20at 11:03; Start 06/26/20 at 15:00 Nicardipine HCl 50 mg/Sodium Chloride 250 ml @ 0 mls/hr CONT PRN PRN IV PER PROTOCOL; Start 06/26/20 at 15:45 Lorazepam (Ativan Inj) 2 mg PRN Q4HRS PRN IVP ANXIETY / AGITATION Last administered on 06/27/20at 15:57; Start 06/26/20 at 15:45 Insulin Human Lispro (HumaLOG) 0-5 UNITS Q6HRS SQ Last administered on 06/27/20at 17:28; Start 06/26/20 at 18:00; Stop 06/28/20 at 02:54; Status DC Dextrose (Dextrose 50%-Water Syringe) 12.5 gm PRN Q15MIN PRN IV SEE COMMENTS; Start 06/26/20 at 15:45 Aspirin (Aspirin Rectal Supp) 300 mg PRN DAILY PRN IN IF UNABLE TO TAKE PO Last administered on 06/26/20at 17:39; Start 06/26/20 at 16:15 Magnesium Sulfate 100 ml @ 50 mls/hr DAILY IV Last administered on 06/26/20at 17:35; Start 06/26/20 at 17:00; Stop 06/28/20 at 10:23; Status DC Insulin Human Lispro (HumaLOG) 0-5 UNITS TIDWMEALS SQ Last administered on 06/30/20at 12:14; Start 06/28/20 at 08:45 Magnesium Sulfate 100 ml @ 50 mls/hr PRN DAILY PRN IV SEE ORDER COMMENTS; Start 06/28/20 at 10:30 Amlodipine Besylate (Norvasc) 5 mg DAILY PO Last administered on 06/30/20at 08:37; Start 06/28/20 at 12:00 Ceftriaxone Sodium (Rocephin) 1 gm Q24H IVP Last administered on 06/29/20at 15:06; Start 06/29/20 at 14:00 Ropinirole HCl (Requip) 0.5 mg 1X ONCE PO Last administered on 06/29/20at 22:16; Start 06/29/20 at 22:00; Stop 06/29/20 at 22:01; Status DC Active Scripts Active Reported Jardiance (Empagliflozin) 10 Mg Tablet 10 Mg PO DAILY Ciclopirox 8% Treatment Kit (Ciclopirox/Ure/Camph/Menth/Euc) 34.6 Ml Solution 34.6 Ml TP HS Glipizide Xl (Glipizide) 5 Mg Tab.er.24 5 Mg PO DAILY Metformin Hcl 500 Mg Tablet 500 Mg PO BIDWMEALS Metoprolol Succinate ( Xl ) (Metoprolol Succinate) 25 Mg Tab.er.24h 2 Tab PO DAILY Atorvastatin Calcium 40 Mg Tablet 1 Tab PO DAILY Lisinopril-Hctz 10-12.5 Mg Tab (Lisinopril/Hydrochlorothiazide) 1 Each Tablet 1 Tab PO DAILY Gabapentin (Gabapentin) 300 Mg Capsule 1 Cap PO TID PRN diabetic neuropathy Citalopram Hbr (Citalopram Hydrobromide) 20 Mg Tablet 1 Tab PO DAILY Vitals/I & O Vital Sign - Last 24 Hours 06/29/20 06/29/20 06/29/20 06/29/20 15:00 19:51 19:56 20:57 Temp 98.1 98.1 98.1 98.1 Pulse 77 82 82 Resp 22 22 B/P (MAP) 157/64 (95) 187/86 (119) 187/86 Pulse Ox 98 98 O2 Delivery Room Air Room Air Room Air 06/29/20 06/29/20 06/30/20 06/30/20 22:17 22:53 03:12 03:14 Temp 98.3 98.4 98.3 98.4 Pulse 80 80 75 75 Resp 18 18 B/P (MAP) 194/80 (118) 217/82 180/84 (116) 180/84 Pulse Ox 97 97 O2 Delivery Nasal Cannula Nasal Cannula O2 Flow Rate 2.0 2.0 06/30/20 06/30/20 06/30/20 06/30/20 07:15 07:30 08:37 08:37 Temp 98.3 98.3 Pulse 72 72 72 Resp 18 B/P (MAP) 176/84 (114) 176/84 176/84 Pulse Ox 97 O2 Delivery Nasal Cannula Room Air O2 Flow Rate 2.0 06/30/20 10:27 Temp 98.3 98.3 Pulse 70 Resp 18 B/P (MAP) 166/79 (108) Pulse Ox 97 O2 Delivery Nasal Cannula O2 Flow Rate 2.0 Intake and Output 06/29/20 06/29/20 06/30/20 15:00 23:00 07:00 Intake Total 450 ml 300 ml Output Total 330 ml 400 ml 200 ml Balance -330 ml 50 ml 100 ml Justicifation of Admission Dx: Justifications for Admission: Justification of Admission Dx: Yes Stroke - Ischemic: Stroke-Ischemic HERNAN HUNTLEY MD Jun 30, 2020 13:22
[2020-06-30] MEDS: cefTRIAXone IV Push 1 GM VIAL. IVP SCH (14:17)
[2020-06-30 14:30] VITALS: BP 162/61
--- NOTE | 2020-06-30 15:20 | PDOC ---
PROGRESS NOTES Date of Service DATE: 06/30/20 TIME: 15:18 Subjective Subjective SEEN IN FOLLOW UP OF CKD AND HTN Objective Objective Vital Signs Date Time Temp Pulse Resp B/P (MAP) Pulse Ox O2 Delivery O2 Flow Rate FiO2 06/30/20 14:30 98.2 71 18 162/61 (94) 97 Nasal Cannula 2.0 98.2 Intake and Output 06/30/20 07:00 Intake Total 750 ml Output Total 930 ml Balance -180 ml Intake Oral 750 ml Output Urine Total 930 ml # Bowel Movements 1 Physical Exam Abdomen: Normal bowel sounds, Soft, No tenderness, No hepatosplenomegaly, No masses General: Alert, Oriented X3, Cooperative, No acute distress Lungs: Clear to auscultation, Normal air movement Neuro: Other (POST CVA) Psych/Mental Status: Mental status NL, Mood NL Diagnosis HYPERTENSION: Benign hypertension RENAL FAILURE: Chronic (CKD stage III) Plan Plan of Care BP REMAINS ELEVATED. AGREE WITH INCREASING AMLODIPINE Comment Review of Relevant I have reviewed the following items eldon (where applicable) has been applied. Labs Laboratory Tests Test 06/28/20 17:04 06/28/20 17:30 06/28/20 21:07 06/29/20 06:35 Glucose (Fingerstick) 199 mg/dL (70-99) 210 mg/dL (70-99) Urine Collection Type Unknown Urine Color Yellow Urine Clarity Cloudy Urine pH 6.0 (<5.0-8.0) Urine Specific [place] >=1.030 (1.000-1.030) Urine Protein >=300 mg/dL (NEG-TRACE) Urine Glucose (UA) 500 mg/dL (NEG) Urine Ketones (Stick) Negative mg/dL (NEG) Urine Blood Small (NEG) Urine Nitrite Negative (NEG) Urine Bilirubin Negative (NEG) Urine Urobilinogen Dipstick 1.0 mg/dL (0.2 mg/dL) Urine Leukocyte Esterase Small (NEG) Urine RBC 3-5 /HPF (0-2) Urine WBC >40 /HPF (0-4) Urine Squamous Epithelial Cells Mod /LPF Urine Bacteria Many /HPF (0-FEW) Urine Random Creatinine 240.3 mg/dL (Not Establ.) Urine Random Total Protein 2386.1 mg/dL (Not Establ.) Urine Protein/Creatinine Ratio 9930 mg/g (0-200) Sodium Level 140 mmol/L (136-145) Potassium Level 4.2 mmol/L (3.5-5.1) Chloride Level 109 mmol/L (98-107) Carbon Dioxide Level 24 mmol/L (21-32) Anion Gap 7 (6-14) Blood Urea Nitrogen 36 mg/dL (7-20) Creatinine 3.3 mg/dL (0.6-1.0) Estimated GFR (Cockcroft-Gault) 14.4 BUN/Creatinine Ratio 11 (6-20) Glucose Level 172 mg/dL (70-99) Calcium Level 8.2 mg/dL (8.5-10.1) Total Bilirubin 0.4 mg/dL (0.2-1.0) Aspartate Amino Transf (AST/SGOT) 13 U/L (15-37) Alanine Aminotransferase (ALT/SGPT) 13 U/L (14-59) Alkaline Phosphatase 65 U/L (46-116) Total Protein 4.8 g/dL (6.4-8.2) Albumin 1.6 g/dL (3.4-5.0) Albumin/Globulin Ratio 0.5 (1.0-1.7) Test 06/29/20 07:27 06/29/20 11:43 06/29/20 17:09 06/29/20 22:16 Glucose (Fingerstick) 182 mg/dL (70-99) 194 mg/dL (70-99) 192 mg/dL (70-99) 177 mg/dL (70-99) Test 06/30/20 06:54 06/30/20 07:55 06/30/20 11:17 Glucose (Fingerstick) 182 mg/dL (70-99) 204 mg/dL (70-99) Sodium Level 139 mmol/L (136-145) Potassium Level 4.1 mmol/L (3.5-5.1) Chloride Level 105 mmol/L (98-107) Carbon Dioxide Level 24 mmol/L (21-32) Anion Gap 10 (6-14) Blood Urea Nitrogen 42 mg/dL (7-20) Creatinine 3.2 mg/dL (0.6-1.0) Estimated GFR (Cockcroft-Gault) 14.9 Glucose Level 174 mg/dL (70-99) Calcium Level 8.4 mg/dL (8.5-10.1) Laboratory Tests Test 06/29/20 17:09 06/29/20 22:16 06/30/20 06:54 06/30/20 07:55 Glucose (Fingerstick) 192 mg/dL (70-99) 177 mg/dL (70-99) 182 mg/dL (70-99) Sodium Level 139 mmol/L (136-145) Potassium Level 4.1 mmol/L (3.5-5.1) Chloride Level 105 mmol/L (98-107) Carbon Dioxide Level 24 mmol/L (21-32) Anion Gap 10 (6-14) Blood Urea Nitrogen 42 mg/dL (7-20) Creatinine 3.2 mg/dL (0.6-1.0) Estimated GFR (Cockcroft-Gault) 14.9 Glucose Level 174 mg/dL (70-99) Calcium Level 8.4 mg/dL (8.5-10.1) Test 06/30/20 11:17 Glucose (Fingerstick) 204 mg/dL (70-99) Microbiology 06/28/20 Urine Culture - Final, Complete Medications Current Medications Potassium Chloride/Sodium Chloride 1,000 ml @ 75 mls/hr [id number] IV Last administered on 06/27/20at 06:37; Start 06/26/20 at 15:00; Stop 06/28/20 at 16:57; Status DC Aspirin (Ecotrin) 81 mg DAILYWBKFT PO Last administered on 06/30/20at 08:38; Start 06/27/20 at 08:00 Atorvastatin Calcium (Lipitor) 40 mg QHS PO Last administered on 06/29/20at 20:57; Start 06/26/20 at 21:00 Citalopram Hydrobromide (CeleXA) 20 mg DAILY PO Last administered on 06/30/20at 08:37; Start 06/27/20 at 09:00 Info (Icu Electrolyte Protocol) 1 ea CONT PRN PRN MC PER PROTOCOL; Start 06/26/20 at 14:45 Gabapentin (Neurontin) 300 mg BID PO Last administered on 06/30/20at 08:37; Start 06/26/20 at 21:00 Labetalol HCl (Normodyne Iv Push) 20 mg PRN Q2HR PRN IVP HYPERTENSION-1ST CHOICE Last administered on 06/30/20at 03:14; Start 06/26/20 at 14:45 Lisinopril (Prinivil) 10 mg DAILY PO ; Start 06/27/20 at 09:00; Stop 06/28/20 at 09:41; Status DC Metoprolol Tartrate (Lopressor) 50 mg BID PO Last administered on 06/30/20at 08:37; Start 06/26/20 at 21:00 Ondansetron HCl (Zofran) 4 mg PRN Q4HRS PRN IVP NAUSEA/VOMITING Last administered on 06/27/20at 00:45; Start 06/26/20 at 15:00 Hydralazine HCl (Apresoline Inj) 10 mg PRN Q4HRS PRN IVP ELEVATED BP, SEE COMMENTS Last administered on 06/29/20at 11:03; Start 06/26/20 at 15:00 Nicardipine HCl 50 mg/Sodium Chloride 250 ml @ 0 mls/hr CONT PRN PRN IV PER PROTOCOL; Start 06/26/20 at 15:45 Lorazepam (Ativan Inj) 2 mg PRN Q4HRS PRN IVP ANXIETY / AGITATION Last administered on 06/27/20at 15:57; Start 06/26/20 at 15:45 Insulin Human Lispro (HumaLOG) 0-5 UNITS Q6HRS SQ Last administered on 06/27/20at 17:28; Start 06/26/20 at 18:00; Stop 06/28/20 at 02:54; Status DC Dextrose (Dextrose 50%-Water Syringe) 12.5 gm PRN Q15MIN PRN IV SEE COMMENTS; Start 06/26/20 at 15:45 Aspirin (Aspirin Rectal Supp) 300 mg PRN DAILY PRN WI IF UNABLE TO TAKE PO Last administered on 06/26/20at 17:39; Start 06/26/20 at 16:15 Magnesium Sulfate 100 ml @ 50 mls/hr DAILY IV Last administered on 06/26/20at 17:35; Start 06/26/20 at 17:00; Stop 06/28/20 at 10:23; Status DC Insulin Human Lispro (HumaLOG) 0-5 UNITS TIDWMEALS SQ Last administered on 06/30/20at 12:14; Start 06/28/20 at 08:45 Magnesium Sulfate 100 ml @ 50 mls/hr PRN DAILY PRN IV SEE ORDER COMMENTS; Start 06/28/20 at 10:30 Amlodipine Besylate (Norvasc) 5 mg DAILY PO Last administered on 06/30/20at 08:37; Start 06/28/20 at 12:00 Ceftriaxone Sodium (Rocephin) 1 gm Q24H IVP Last administered on 06/30/20at 14:17; Start 06/29/20 at 14:00 Ropinirole HCl (Requip) 0.5 mg 1X ONCE PO Last administered on 06/29/20at 22:16; Start 06/29/20 at 22:00; Stop 06/29/20 at 22:01; Status DC Active Scripts Active Reported Jardiance (Empagliflozin) 10 Mg Tablet 10 Mg PO DAILY Ciclopirox 8% Treatment Kit (Ciclopirox/Ure/Camph/Menth/Euc) 34.6 Ml Solution 34.6 Ml TP HS Glipizide Xl (Glipizide) 5 Mg Tab.er.24 5 Mg PO DAILY Metformin Hcl 500 Mg Tablet 500 Mg PO BIDWMEALS Metoprolol Succinate ( Xl ) (Metoprolol Succinate) 25 Mg Tab.er.24h 2 Tab PO DAILY Atorvastatin Calcium 40 Mg Tablet 1 Tab PO DAILY Lisinopril-Hctz 10-12.5 Mg Tab (Lisinopril/Hydrochlorothiazide) 1 Each Tablet 1 Tab PO DAILY Gabapentin (Gabapentin) 300 Mg Capsule 1 Cap PO TID PRN diabetic neuropathy Citalopram Hbr (Citalopram Hydrobromide) 20 Mg Tablet 1 Tab PO DAILY Vitals/I & O Vital Sign - Last 24 Hours 06/29/20 06/29/20 06/29/20 06/29/20 19:51 19:56 20:57 22:17 Temp 98.1 98.3 98.1 98.3 Pulse 82 82 80 Resp 22 18 B/P (MAP) 187/86 (119) 187/86 194/80 (118) Pulse Ox 98 97 O2 Delivery Room Air Room Air Nasal Cannula O2 Flow Rate 2.0 06/29/20 06/30/20 06/30/20 06/30/20 22:53 03:12 03:14 07:15 Temp 98.4 98.3 98.4 98.3 Pulse 80 75 75 72 Resp 18 18 B/P (MAP) 217/82 180/84 (116) 180/84 176/84 (114) Pulse Ox 97 97 O2 Delivery Nasal Cannula Nasal Cannula O2 Flow Rate 2.0 2.0 06/30/20 06/30/20 06/30/20 06/30/20 07:30 08:37 08:37 10:27 Temp 98.3 98.3 Pulse 72 72 70 Resp 18 B/P (MAP) 176/84 176/84 166/79 (108) Pulse Ox 97 O2 Delivery Room Air Nasal Cannula O2 Flow Rate 2.0 06/30/20 14:30 Temp 98.2 98.2 Pulse 71 Resp 18 B/P (MAP) 162/61 (94) Pulse Ox 97 O2 Delivery Nasal Cannula O2 Flow Rate 2.0 Intake and Output 06/29/20 06/29/20 06/30/20 15:00 23:00 07:00 Intake Total 450 ml 300 ml Output Total 330 ml 400 ml 200 ml Balance -330 ml 50 ml 100 ml Justifications for Admission Other Justification XIOMY TOMPKINS MD Jun 30, 2020 15:20
--- NOTE | 2020-06-30 15:42 | PDOC ---
CARDIOLOGY PROGRESS NOTE SUBJECTIVE: No new CV issues OBJECTIVE: Vital Signs/I&O: Vital Signs Date Time Temp Pulse Resp B/P (MAP) Pulse Ox O2 Delivery O2 Flow Rate FiO2 06/30/20 14:30 98.2 71 18 162/61 (94) 97 Nasal Cannula 2.0 98.2 I & O 06/29/20 06/29/20 06/30/20 15:00 23:00 07:00 Intake Total 450 ml 300 ml Output Total 330 ml 400 ml 200 ml Balance -330 ml 50 ml 100 ml Objective: No clinical changes. R arm weakness remains No edema. CURRENT MEDICATIONS: amlodipine, atorvastatin, metoprolol and asa DIAGNOSTIC TESTING: Labs: Laboratory Tests 06/30/20 07:55 Laboratory Tests Test 06/29/20 17:09 06/29/20 22:16 06/30/20 06:54 06/30/20 07:55 Glucose (Fingerstick) 192 mg/dL (70-99) H 177 mg/dL (70-99) H 182 mg/dL (70-99) H Sodium Level 139 mmol/L (136-145) Potassium Level 4.1 mmol/L (3.5-5.1) Chloride Level 105 mmol/L (98-107) Carbon Dioxide Level 24 mmol/L (21-32) Anion Gap 10 (6-14) Blood Urea Nitrogen 42 mg/dL (7-20) H Creatinine 3.2 mg/dL (0.6-1.0) H Estimated GFR (Cockcroft-Gault) 14.9 Glucose Level 174 mg/dL (70-99) H Calcium Level 8.4 mg/dL (8.5-10.1) L Test 06/30/20 11:17 Glucose (Fingerstick) 204 mg/dL (70-99) H ASSESSMENT: 1. CVA 2. HTN 3. CKD PLAN: 1. No afib. Continue BP control per goals set by neurology 2. No further CV issues. Plan for outpt testing if needed based on residual symptoms. Thanks Justicifation of Admission Dx: Justifications for Admission: Justification of Admission Dx: Yes Stroke - Ischemic: Stroke-Ischemic RONALDO JESUS MD Jun 30, 2020 15:42
[2020-06-30 19:23] VITALS: BP 221/102
[2020-06-30] MEDS: ATORVASTATIN CALCIUM 40 MG TABLET. PO SCH (21:10)
[2020-06-30] MEDS: hydrALAZINE 20 MG/ML VIAL. IVP PRN (21:16)
[2020-06-30 22:54] VITALS: BP 193/90
[2020-07-01 02:53] VITALS: BP 182/80
[2020-07-01 04:42] LABS: HEMATOCRIT 30.6 % (36.0-47.0); HEMOGLOBIN 10.5 g/dL (12.0-15.5); RED BLOOD COUNT 3.77 x10^6/uL (3.50-5.40); RED CELL DISTRIBUTION WIDTH 14.2 % (11.5-14.5); WHITE BLOOD COUNT 9.6 x10^3/uL (4.0-11.0)
[2020-07-01 04:58] LABS: ALBUMIN 1.8 g/dL (3.4-5.0); ALBUMIN/GLOBULIN RATIO 0.5 (1.0-1.7); CALCIUM 8.8 mg/dL (8.5-10.1); CREATININE 3.1 mg/dL (0.6-1.0); GFR 15.4; TOTAL BILIRUBIN 0.4 mg/dL (0.2-1.0); TOTAL PROTEIN 5.4 g/dL (6.4-8.2)
[2020-07-01 06:46] VITALS: BP 178/82
[2020-07-01] MEDS: GABAPENTIN 300 MG CAPSULE. PO SCH ×2 (08:09→20:33)
[2020-07-01] MEDS: CITALOPRAM 20 MG TABLET. PO SCH (08:09)
[2020-07-01] MEDS: ASPIRIN ENTERIC COATED 81 MG TABLET.DR. PO SCH (08:09)
[2020-07-01] MEDS: METOPROLOL TART IMMED RELEASE 50 MG TABLET. PO SCH ×2 (08:10→20:34)
[2020-07-01] MEDS: INSULIN LISPRO 300 UNITS/3 ML VIAL. SQ SCH ×3 (08:14→17:00)
--- NOTE | 2020-07-01 08:51 | PN ---
DATE: 07/01/2020 SUBJECTIVE: The patient is resting, slightly propped up in bed, in no apparent distress, awake, alert. On questioning her, denied any complaint. The nursing staff did not voice any concern and stated that she has an uneventful night. PHYSICAL EXAMINATION: GENERAL: When I examined her, she looked pale. No jaundice, cyanosis or thyromegaly. No jugular venous distention. No lower limb edema. VITAL SIGNS: Her heart rate was 74, blood pressure was 178/82, temperature was 99.2, respiratory rate was 19 and oxygen saturation was 94% on 2 liters of oxygen. NEUROLOGIC: The patient continued to have slurring of speech, right-sided facial droop and right-sided hemiplegia. Her intake was 750, output was 930. LABORATORY DATA: As of this morning, her white cell count was 9600, hemoglobin 10, hematocrit 30, MCV 81 and platelet count 229,000. Serum sodium was 138, potassium 4, chloride 106, bicarbonate 23, anion gap of 9, BUN 43, creatinine 3.1, estimated GFR was 15 mL per minute. Her glucose was 200, calcium was 8.8. Total bilirubin, AST, ALT, alkaline phosphatase were normal. Total protein 5.4, albumin was 1.8. Her total protein was 2386 mg/dL. ASSESSMENT: 1. Acute infarct involving left-sided chan radiata with resultant right-sided hemiplegia, slurring of speech and right-sided facial droop. 2. Chronic cerebellar infarct. 3. Hypertension. 4. Hyperlipidemia. 5. Acute on chronic kidney injury, for which we discontinued her lisinopril. Ultrasound showed no evidence of renal artery stenosis and her creatinine is trending down slowly. Today, the creatinine is 3.1. 6. 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 PLAN: To continue with physical and occupational therapy. Her blood pressure continues to be high and we increased her amlodipine to 10 mg once a day. My plan is to discharge her tomorrow to [facility] [place]. MARIO PEREIRA MD DR: RG/malvin JOB#: [id number] / [id number]
[2020-07-01 10:38] VITALS: BP 156/82
--- NOTE | 2020-07-01 11:42 | PDOC ---
CARDIOLOGY PROGRESS NOTE SUBJECTIVE: No new chest pain or palpitations. NO other acute issues. OBJECTIVE: Vital Signs/I&O: Vital Signs Date Time Temp Pulse Resp B/P (MAP) Pulse Ox O2 Delivery O2 Flow Rate FiO2 07/01/20 10:38 98.2 66 19 156/82 (106) 97 Nasal Cannula 2.0 98.2 I & O 06/30/20 06/30/20 07/01/20 15:00 23:00 07:00 Intake Total 1010 ml 460 ml Output Total 250 ml 700 ml Balance -250 ml 310 ml 460 ml Objective: R upper ext weakness persists. Normal heart tones NO edema. CURRENT MEDICATIONS: aSA, metoprolol, amlodipine, atorvastatin DIAGNOSTIC TESTING: Labs reviewed Labs: Laboratory Tests 07/01/20 04:30 Laboratory Tests Test 06/30/20 16:02 06/30/20 20:05 07/01/20 04:30 07/01/20 07:01 Glucose (Fingerstick) 166 mg/dL (70-99) H 152 mg/dL (70-99) H 153 mg/dL (70-99) H White Blood Count 9.6 x10^3/uL (4.0-11.0) Red Blood Count 3.77 x10^6/uL (3.50-5.40) Hemoglobin 10.5 g/dL (12.0-15.5) L Hematocrit 30.6 % (36.0-47.0) L Mean Corpuscular Volume 81 fL (79-100) Mean Corpuscular Hemoglobin 28 pg (25-35) Mean Corpuscular Hemoglobin Concent 34 g/dL (31-37) Red Cell Distribution Width 14.2 % (11.5-14.5) Platelet Count 229 x10^3/uL (140-400) Sodium Level 138 mmol/L (136-145) Potassium Level 4.0 mmol/L (3.5-5.1) Chloride Level 106 mmol/L (98-107) Carbon Dioxide Level 23 mmol/L (21-32) Anion Gap 9 (6-14) Blood Urea Nitrogen 43 mg/dL (7-20) H Creatinine 3.1 mg/dL (0.6-1.0) H Estimated GFR (Cockcroft-Gault) 15.4 BUN/Creatinine Ratio 14 (6-20) Glucose Level 200 mg/dL (70-99) H Calcium Level 8.8 mg/dL (8.5-10.1) Total Bilirubin 0.4 mg/dL (0.2-1.0) Aspartate Amino Transf (AST/SGOT) 13 U/L (15-37) L Alkaline Phosphatase 80 U/L (46-116) Total Protein 5.4 g/dL (6.4-8.2) L Albumin 1.8 g/dL (3.4-5.0) L Albumin/Globulin Ratio 0.5 (1.0-1.7) L Test 07/01/20 11:13 Glucose (Fingerstick) 194 mg/dL (70-99) H ASSESSMENT: 1. CVA 2. HTN 3. CKD PLAN: 1. Add low dose hydralazine at 25mg p.o bid. Continue present meds. 2. Outpt event monitoring and consideration of stress testing depending on symptoms. Justicifation of Admission Dx: Justifications for Admission: Justification of Admission Dx: Yes Stroke - Ischemic: Stroke-Ischemic RONALDO JESUS MD Jul 01, 2020 11:42
[2020-07-01] MEDS: hydrALAZINE 25 MG TABLET PO SCH ×2 (12:05→20:35)
[2020-07-01 14:28] VITALS: BP 154/67
[2020-07-01 19:25] VITALS: BP 204/95
[2020-07-01] MEDS: ATORVASTATIN CALCIUM 40 MG TABLET. PO SCH (20:34)
[2020-07-01 23:10] VITALS: BP 211/92
[2020-07-01] MEDS: hydrALAZINE 20 MG/ML VIAL. IVP PRN (23:51)
[2020-07-02] MEDS ORDERED: rOPINIRole 0.25 MG TABLET. PO ONE (01:00)
[2020-07-02 03:15] VITALS: BP 171/87
[2020-07-02 04:59] LABS: CALCIUM 8.7 mg/dL (8.5-10.1); CREATININE 2.8 mg/dL (0.6-1.0); GFR 17.4
[2020-07-02 07:00] VITALS: BP 166/100
--- NOTE | 2020-07-02 07:59 | SNU/HH DC ---
DISCHARGE ORDERS DISCHARGE INFORMATION: DISCHARGE DATE: Jul 02, 2020 FINAL DIAGNOSIS LEFT SIDED CEREBROVASCULAR DISEASE RIGHT SIDED HEMIPLEGIA HYPERTENSION HYPERLIPIDEMIA TYPE II DM ACUTE ON CHRONIC KIDNEY INJURY CONDITION ON DISCHARGE: Stable CODE STATUS: Code Status: Full LTAC: ADMIT TO LTAC: Yes POST DISCHARGE ORDERS: ACTIVITY ORDERS: Activity as tolerated WEIGHT BEARING STATUS: Full weight bearing BATHING ORDERS: Shower-keep dressing dry DIET AFTER DISCHARGE: ADA WOUND/INCISION CARE: Other, see below TREATMENT/EQUIPMENT ORDERS: ADAPTIVE EQUIPMENT NEEDED: None Physical Therapy For: Evalulation/Treatment Occupational Therapy For: Evaluation/Treatment Speech Language Pathology For: Evaluation/Treatment DISCHARGE MEDICATIONS: Home Meds Reported Medications Empagliflozin (Jardiance) 10 Mg Tablet, 10 MG PO DAILY for diabetes, TAB 06/29/20 Ciclopirox/Ure/Camph/Menth/Euc (CICLOPIROX 8% TREATMENT KIT) 34.6 Ml Solution, 34.6 ML TP HS for fungal infection, MISC 06/29/20 Glipizide (GLIPIZIDE XL) 5 Mg Tab.er.24, 5 MG PO DAILY for diabetes, TAB.SR 06/29/20 Metformin Hcl (METFORMIN HCL) 500 Mg Tablet, 500 MG PO BIDWMEALS for ANTI- DIABETIC, TAB 0 Refills 06/29/20 Metoprolol Succinate (METOPROLOL SUCCINATE ( XL )) 25 Mg Tab.er.24h, 2 TAB PO DAILY for blood pressure, #30 TAB 5 Refills 06/29/20 Atorvastatin Calcium (ATORVASTATIN CALCIUM) 40 Mg Tablet, 1 TAB PO DAILY for high cholesterol, #30 TAB 5 Refills 06/26/20 Lisinopril/Hydrochlorothiazide (LISINOPRIL-HCTZ 10-12.5 MG TAB) 1 Each Tablet, 1 TAB PO DAILY for hypertension, #30 TAB 5 Refills 06/26/20 Gabapentin (GABAPENTIN ) 300 Mg Capsule, 1 CAP PO TID PRN for diabetic neuropathy, #90 CAP 5 Refills diabetic neuropathy 02/02/15 Citalopram Hydrobromide (CITALOPRAM HBR) 20 Mg Tablet, 1 TAB PO DAILY, #30 TAB 5 Refills 02/02/15 Discontinued Reported Medications Metformin Hcl (METFORMIN HCL) 500 Mg Tablet, 1 TAB PO DAILYWBKFT for diabetic, #60 TAB 3 Refills hold for 48 hours after cardiac catherization 02/02/15 Metoprolol Tartrate (METOPROLOL TARTRATE) 25 Mg Tablet, 2 TAB PO BID for heart, #180 TAB 1 Refill 02/02/15 MARIO PEREIRA MD Jul 02, 2020 07:59
[2020-07-02] MEDS: CITALOPRAM 20 MG TABLET. PO SCH (08:15)
[2020-07-02] MEDS: hydrALAZINE 25 MG TABLET PO SCH (08:15)
[2020-07-02] MEDS: GABAPENTIN 300 MG CAPSULE. PO SCH (08:15)
[2020-07-02] MEDS: ASPIRIN ENTERIC COATED 81 MG TABLET.DR. PO SCH (08:15)
[2020-07-02] MEDS: METOPROLOL TART IMMED RELEASE 50 MG TABLET. PO SCH (08:16)
[2020-07-02] MEDS: INSULIN LISPRO 300 UNITS/3 ML VIAL. SQ SCH (08:20)
--- NOTE | 2020-07-02 08:29 | DS ---
DATE OF DISCHARGE: 07/02/2020 HOSPITAL COURSE: The patient was originally admitted to [facility] with slurring of speech and right-sided hemiplegia. She also has hypertensive urgency and CT scan of the head was unremarkable; however, we transferred her to [facility] and had an MRI, which showed that she has left chan radiata infarct with right-sided hemiplegia. She also was found to have an old cerebellar infarct. She has had an echocardiogram, which showed that the patient has left ventricular systolic function is normal with an ejection fraction of 60-65%, normal left ventricular segmental wall motion. The interatrial septum is intact with no evidence of atrial septal defect, patent foramen ovale as noted on 2-dimensional Doppler imaging with agitated saline study did not reveal any evidence of atrial septal defect. She was seen in consultation by Dr. Calhoun, the real estate closer, and she also unfortunately developed acute kidney injury. Her creatinine has risen from 2.6 up to 3.4 and it is coming down steadily, also has hypokalemia and hypomagnesemia that resolved. Her blood pressure also was extremely high and we increased her metoprolol to 50 mg twice a day and added amlodipine and hydralazine and her blood pressure was stabilized and as she remained stable and her kidney function improving, a decision was made to discharge her to [facility]. PHYSICAL EXAMINATION: GENERAL: When I saw her this morning, she looked well and was clearly in no apparent respiratory distress. No pallor, jaundice, cyanosis or thyromegaly. No jugular venous distension. No limb edema. VITAL SIGNS: Her heart rate was 75, blood pressure was 166/100, temperature was 98.7, respiratory rate 20, and oxygen saturation was 97% on room air. HEAD, EYES, EARS, NOSE AND THROAT: Showed normocephalic, atraumatic. NECK: Supple. HEART: Normal first and second heart sounds. No gallop, rub or murmur. CHEST: Clear to auscultation. No crepitation or rhonchi. ABDOMEN: Distended, soft, nontender. NEUROLOGIC: She is awake, alert and responding appropriately. She continued to have somewhat slurred speech, right-sided facial droop and right-sided hemiplegia. Her intake over the last 24 hours was 1470 and output was 950. LABORATORY DATA: As of this morning, her serum sodium was 139, potassium 4, chloride 105, bicarbonate 24, anion gap of 10, BUN 37, creatinine 2.8 and estimated GFR was 17 mL per minute. Her glucose was 206 and calcium was 8.7. Her white cell count was 9600, hemoglobin 10, hematocrit 30, MCV 81 and platelet count 229,000. Her coronavirus by PCR was not detected on 06/27/2020. DISCHARGE MEDICATIONS: She was discharged to continue on hydralazine 25 mg twice a day and amlodipine 10 mg daily. She is on Humalog insulin, advancing sliding scale before meals, citalopram hydrobromide for Celexa 20 mg once a day, aspirin 81 mg once a day, metoprolol 50 mg twice a day, gabapentin 300 mg twice a day and atorvastatin 40 mg at bedtime. FINAL DISCHARGE DIAGNOSES: 1. Acute infarct involving left-sided chan radiata with resultant right-sided hemiplegia, slurring speech and right-sided facial droop. 2. Chronic cerebellar infarct. 3. Hypertension, much better controlled. 4. Hyperlipidemia. 5. Acute on chronic kidney injury. We discontinued her lisinopril and her creatinine is actually coming down from 3.4 down to 0.8. 6. Proteinuria, not in the nephrotic range, likely diabetic and hypertensive nephropathy. MARIO PEREIRA MD DR: RG/malvin JOB#: [id number] / [id number]
--- NOTE | 2020-07-02 10:10 | NUR ---
SS following up with discharge planning. SS reviewed pt chart and discussed with pt RN. Pt is currently on room air. COVID19 negative. PT/OT recommended acute rehabilitation. Pt accepted at [facility], ; fax [phone]. Insurance authorization received. Discharge orders received and faxed to [facility]. Pt will discharge today and go to [facility] at 1200. Bed#[id number]. Report to be provided to RNMelanie, . Pt and pt's RN notified. Pt reported that she would contact her family and notify them. Packet placed on chart.
[2020-07-02 10:19] VITALS: BP 145/82
--- NOTE | 2020-07-02 11:59 | PDOC ---
DATE OF SERVICE DATE: 07/02/20 TIME: 11:56 SUBJECTIVE ROS stable OBJECTIVE Vital Signs Vital Signs Date Time Temp Pulse Resp B/P (MAP) Pulse Ox O2 Delivery O2 Flow Rate FiO2 07/02/20 10:19 98.2 64 20 145/82 (103) 98 Room Air 98.2 07/01/20 14:28 2.0 I & 0 Intake and Output 07/02/20 07:00 Intake Total 1120 ml Output Total 650 ml Balance 470 ml Intake Oral 1120 ml Output Urine Total 650 ml # Voids 6 # Bowel Movements 4 PHYSICAL EXAM Physical Exam GENERAL:NAD HEEN OM moist, No icterus NECK Supple HEART: S1S2 No gallop or murmur. CHEST: Clear to auscultation. Non labored ABDOMEN: Distended, soft, nontender. NEUROLOGIC: awake, alert, responding appropriately. speech slurred some but understandable right-sided facial droop, right-sided hemiplegia. SKIN No Rash No [place] EXT No edema DIAGNOSIS/ASSESSMENT Assessment & Plan FORREST- ATN, Malignant HTN , Improving renal function Baseline unknown, per Pt No Dx of CKD, review of chart Dx of CKD, Labs from pcp still unavailable Ur Cx No growth Renal US Kidneys not reported ) , Doppler No AMANDA , supportive care, I/O (Bladder scan no pvr), Recommned fu with renal as OP(Non urgent /Routine fu) Proteinuria- Nephrotic likely 2/2 dm eith diabetic retinopathy Lisinopril held sec to FORREST CKD - due to DM/DR, HTN . Pt states never been told Acute infarct involving chan radiata with resultant right sided hemiplegia./ Chronic cerebellar infarct. Hypertensive emergency - wrist was being used this am for BP, recommend appropriate size arm cuff Diabetes, II Hypokalemia, hypomagnesemia; resolved COMMENT/RELEVANT DATA Meds Current Medications Medications (Trade) Dose Ordered Sig/Mil[place] Start Time Stop Time Status Last Admin Dose Admin Amlodipine Besylate (Norvasc) 5 mg 1X ONCE 06/30/20 16:00 06/30/20 16:01 DC 06/30/20 16:19 5 MG Aspirin (Aspirin Rectal Supp) 300 mg PRN DAILY PRN 06/26/20 16:15 06/26/20 17:39 300 MG Aspirin (Ecotrin) 81 mg DAILYWBKFT 06/27/20 08:00 07/02/20 08:15 81 MG Atorvastatin Calcium (Lipitor) 40 mg QHS 06/26/20 21:00 07/01/20 20:34 40 MG Ceftriaxone Sodium (Rocephin) 1 gm Q24H 06/29/20 14:00 07/01/20 08:43 DC 06/30/20 14:17 1 GM Citalopram Hydrobromide (CeleXA) 20 mg DAILY 06/27/20 09:00 07/02/20 08:15 20 MG Dextrose (Dextrose 50%-Water Syringe) 12.5 gm PRN Q15MIN PRN 06/26/20 15:45 Gabapentin (Neurontin) 300 mg BID 06/26/20 21:00 07/02/20 08:15 300 MG Hydralazine HCl (Apresoline Inj) 10 mg PRN Q4HRS PRN 06/26/20 15:00 07/01/20 23:51 10 MG Hydralazine HCl (Apresoline) 25 mg BID 07/01/20 12:30 07/02/20 08:15 25 MG Info (Icu Electrolyte Protocol) 1 ea CONT PRN PRN 06/26/20 14:45 Insulin Human Lispro (HumaLOG) 0-5 UNITS TIDWMEALS 06/28/20 08:45 07/02/20 08:20 2 UNITS Labetalol HCl (Normodyne Iv Push) 20 mg PRN Q2HR PRN 06/26/20 14:45 06/30/20 03:14 20 MG Lisinopril (Prinivil) 10 mg DAILY 06/27/20 09:00 06/28/20 09:41 DC Lorazepam (Ativan Inj) 2 mg PRN Q4HRS PRN 06/26/20 15:45 06/27/20 15:57 2 MG Magnesium Sulfate 100 ml @ 50 mls/hr PRN DAILY PRN 06/28/20 10:30 Metoprolol Tartrate (Lopressor) 50 mg BID 06/26/20 21:00 07/02/20 08:16 50 MG Nicardipine HCl 50 mg/Sodium Chloride 250 ml @ 0 mls/hr CONT PRN PRN 06/26/20 15:45 Ondansetron HCl (Zofran) 4 mg PRN Q4HRS PRN 06/26/20 15:00 06/27/20 00:45 4 MG Potassium Chloride/Sodium Chloride 1,000 ml @ 75 mls/hr [id number] 06/26/20 15:00 06/28/20 16:57 DC 06/27/20 06:37 75 MLS/HR Ropinirole HCl (Requip) 0.5 mg 1X ONCE 07/02/20 01:00 07/02/20 01:04 DC 07/02/20 01:17 0.5 MG Lab Laboratory Tests Test 07/01/20 16:02 07/01/20 20:27 07/02/20 03:48 07/02/20 06:59 Glucose (Fingerstick) 154 mg/dL (70-99) 163 mg/dL (70-99) 169 mg/dL (70-99) Sodium Level 139 mmol/L (136-145) Potassium Level 4.0 mmol/L (3.5-5.1) Chloride Level 105 mmol/L (98-107) Carbon Dioxide Level 24 mmol/L (21-32) Anion Gap 10 (6-14) Blood Urea Nitrogen 37 mg/dL (7-20) Creatinine 2.8 mg/dL (0.6-1.0) Estimated GFR (Cockcroft-Gault) 17.4 Glucose Level 206 mg/dL (70-99) Calcium Level 8.7 mg/dL (8.5-10.1) Test 07/02/20 10:59 Glucose (Fingerstick) 186 mg/dL (70-99) Results All relevant outside records, renal labs, imaging studies, telemetry/EKG's were reviewed. Justicifation of Admission Dx: Justifications for Admission: Justification of Admission Dx: Yes Stroke - Ischemic: Stroke-Ischemic PARTH ROGERS MD Jul 02, 2020 11:59
--- NOTE | 2020-07-02 12:02 | PDOC ---
MACIE SIMMONS FIELD KILN BURNER 07/02/20 1202: CARDIO Progress Notes Date and Time Date of Service 07/02/20 Time of Evaluation 1150 Subjective Subjective: No Chest Pain, No shortness of breath, No Palpitations, No Dizziness Vitals Vitals Vital Signs Date Time Temp Pulse Resp B/P (MAP) Pulse Ox O2 Delivery O2 Flow Rate FiO2 07/02/20 10:19 98.2 64 20 145/82 (103) 98 Room Air 98.2 07/01/20 14:28 2.0 Weight Weight [ ] Input and Output Intake and Output Intake and Output 07/02/20 07:00 Intake Total 1120 ml Output Total 650 ml Balance 470 ml Intake Oral 1120 ml Output Urine Total 650 ml # Voids 6 # Bowel Movements 4 Laboratory Labs Laboratory Tests Test 07/01/20 16:02 07/01/20 20:27 07/02/20 03:48 07/02/20 06:59 Glucose (Fingerstick) 154 mg/dL (70-99) 163 mg/dL (70-99) 169 mg/dL (70-99) Sodium Level 139 mmol/L (136-145) Potassium Level 4.0 mmol/L (3.5-5.1) Chloride Level 105 mmol/L (98-107) Carbon Dioxide Level 24 mmol/L (21-32) Anion Gap 10 (6-14) Blood Urea Nitrogen 37 mg/dL (7-20) Creatinine 2.8 mg/dL (0.6-1.0) Estimated GFR (Cockcroft-Gault) 17.4 Glucose Level 206 mg/dL (70-99) Calcium Level 8.7 mg/dL (8.5-10.1) Test 07/02/20 10:59 Glucose (Fingerstick) 186 mg/dL (70-99) Microbiology Micro Microbiology 06/28/20 Urine Culture - Final, Complete Physical Exam HEENT: Neck Supple W Full Motion, Other (right facial droop) Chest: Symmetric LUNGS: Clear to Auscultation Heart: RRR Abdomen: Soft N/T Extremities: No Edema, Other (right sided weakness) Neurology: alert, oriented, follow commands Assessment Assessment 1. Acute onset right sided weakness, acute CVA. Echo with preserved LV systolic function. No evidence of ASD or PFO noted. 2. FORREST on CKD 3. Hypertension; better controlled 4. Elevated troponin; highest 0.16. Most probable type II, demand ischemia in setting of above 5. Hyperlipidemia; statin 6. Diabetes, II 7. Hypokalemia, hypomagnesemia; replaced Recommendations Secondary prevention ASA, statin therapy Continue BB Consider outpatient ischemic evaluation Supportive care Follow up in our office with Dr. Watson as scheduled. Okay to discharge to rehab facility Justicifation of Admission Dx: Justifications for Admission: Justification of Admission Dx: Yes Stroke - Ischemic: Stroke-Ischemic RONALDO WATSON MD 07/03/20 0007: MACIE SIMMONS APRN Jul 02, 2020 12:02 RONALDO WATSON MD Jul 03, 2020 00:07
--- NOTE | 2020-07-02 12:22 | NUR ---
Discharge Note: SELENA CALABRESE Discharge instructions and discharge home medications reviewed with Other facility and a copy given. All questions have been answered and understanding verbalized. The following instructions and handouts were given: called denys to Melanie at [facility] Rehab, provided diet orders, swallow precautions, stroke education Discontinued lines and drains: peripheral IV discontinued, dressing clean dry and intact. Patient discharged to SNU with transportation via wheelchair Patients coat and shoes were not located. Called [facility] (patient transfered from) they were not able to locate. Checked with ICU and was not able to locate. Called [facility], pending return call
== END 2020-07-02 12:33 | DRG 64 ==
LOC: 1 WEST ICU 14:16 → 2 NORTH 06-28 16:42
PROVIDERS: ADMIT Internal Medicine; ATTEND Internal Medicine
DX: I63.9 Cerebral infarction, unspecified (principal); N17.0 Acute kidney failure with tubular necrosis; G81.91 Hemiplegia, unspecified affecting right dominant side; I24.8 Other forms of acute ischemic heart disease; E11.22 Type 2 diabetes mellitus with diabetic chronic kidney disease; E11.319 Type 2 diabetes mellitus with unspecified diabetic retinopathy without macular edema; E11.42 Type 2 diabetes mellitus with diabetic polyneuropathy; E78.5 Hyperlipidemia, unspecified; E83.42 Hypomagnesemia; E87.6 Hypokalemia; F41.9 Anxiety disorder, unspecified; G25.81 Restless legs syndrome; I12.9 Hypertensive chronic kidney disease with stage 1 through stage 4 chronic kidney disease, or unspecified chronic kidney disease; I16.0 Hypertensive urgency; I25.10 Atherosclerotic heart disease of native coronary artery without angina pectoris; I63.81 Other cerebral infarction due to occlusion or stenosis of small artery; M15.9 Polyosteoarthritis, unspecified; N18.9 Chronic kidney disease, unspecified; Z86.73 Personal history of transient ischemic attack (TIA), and cerebral infarction without residual deficits; Z80.3 Family history of malignant neoplasm of breast; Z87.891 Personal history of nicotine dependence; F32.9 Major depressive disorder, single episode, unspecified; Z20.822 Contact with and (suspected) exposure to COVID-19
CPT/HCPCS: 36415; 70544; 70547; 70551; 76770; 80048; 80053; 80061; 81001; 82570; 82962; 83735; 84156; 84484; 85025; 85027; 87086; 93005; 93306; 93975; J0360; J0696; J1815; J2060; J2405; J3475; J3480; J3490; U0003; 92526-GN; 92610-GN; 97110-GO; 97110-GP; 97116-GP; 97530-GO; 97530-GP; 97535-GO; G0378